=== PATIENT | female | born 1940 | race Caucasian/White ===

== ENCOUNTER 2018-04-13 11:15 | Outpatient (CLI) | payer MEDICARE, OTHER, SELFPAY ==
[2018-04-13 13:37] LABS: ALT 21 U/L (12-78); AST 17 U/L (15-37); Albumin 3.6 g/dL (3.4-5.0); Alkaline Phosphatase 92 U/L (46-116); Anion Gap 8.3 mmol/L (3-11); BUN 22 mg/dL (7-18); Bilirubin, Total 0.5 mg/dL (0.2-1.0); CO2 28.7 mmol/L (21.0-32.0); CREATININE 1.39 mg/dL (0.55-1.02); Calcium 10.2 mg/dL (8.5-10.1); Chloride 106 mmol/L (98-107); Estimated GFR 36.67 (mL/min/1.73m2); Glucose 84 mg/dL (70-100); Potassium 4.7 mmol/L (3.5-5.1); Sodium 143 mmol/L (136-145); TSH (W/Ref FT4) 2.11 uIU/mL (0.358-3.74)
== END 2018-04-13 11:35 ==
PROVIDERS: PCP Internal Medicine; Visit Provider Internal Medicine
DX: F03.90 Unspecified dementia, unspecified severity, without behavioral disturbance, psychotic disturbance, mood disturbance, and anxiety (principal); R00.1 Bradycardia, unspecified; E03.9 Hypothyroidism, unspecified
CPT/HCPCS: 36415; 80053; 84443

== ENCOUNTER 2018-04-18 01:28 | Outpatient (CLI) | payer MEDICARE, OTHER, SELFPAY ==
--- NOTE | 2018-04-24 16:42 | HOLTER_ITS ---
DATE OF READING: April 24, 2018 48-hour study. Baseline rhythm sinus. Occasional single PAC. Three burst SVT, longest 7-beat duration, fastest 138 bpm. No atrial fibrill ation. Rare single PVC, one couplet, no VT. 126 pauses, longest 3.91 seconds 1513 hours on day #1 of monitor. On day #2 of monitor at least 4 pauses of approximately 3 seconds are recorded around 3860-2750 hours . Pauses are asymptomatic. Average 1-minute heart rate 45 bpm, range 33-127 bpm.
== END 2018-04-18 01:48 ==
PROVIDERS: PCP Internal Medicine; Visit Provider Internal Medicine
DX: R00.1 Bradycardia, unspecified (principal); I49.1 Atrial premature depolarization; I47.1 Supraventricular tachycardia
CPT/HCPCS: 93225

== ENCOUNTER 2018-04-21 16:34 | Outpatient (CLI) | payer MEDICARE, OTHER, SELFPAY | END 2018-04-21 16:54 | PROVIDERS: PCP Internal Medicine; Visit Provider Internal Medicine | DX: R00.1 Bradycardia, unspecified (principal); I49.1 Atrial premature depolarization; I47.1 Supraventricular tachycardia | CPT/HCPCS: 93226 ==

== ENCOUNTER 2018-04-24 10:50 | Outpatient (CLI) | payer MEDICARE, OTHER, SELFPAY | END 2018-04-24 11:10 | PROVIDERS: PCP Internal Medicine; Visit Provider Internal Medicine Interventional Cardiology | DX: R00.1 Bradycardia, unspecified (principal); I49.1 Atrial premature depolarization; I47.1 Supraventricular tachycardia | CPT/HCPCS: 93227 ==

== ENCOUNTER 2018-07-17 10:48 | Outpatient (CLI) | payer MEDICARE, OTHER, SELFPAY ==
[2018-07-17 15:01] LABS: ALT 22 U/L (12-78); AST 22 U/L (15-37); Albumin 3.8 g/dL (3.4-5.0); Alkaline Phosphatase 97 U/L (46-116); Anion Gap 8.3 mmol/L (3-11); BUN 21 mg/dL (7-18); Bilirubin, Total 0.6 mg/dL (0.2-1.0); CO2 29.7 mmol/L (21.0-32.0); Calcium 10.3 mg/dL (8.5-10.1); Chloride 104 mmol/L (98-107); Estimated GFR 31.17 (mL/min/1.73m2); Glucose 90 mg/dL (70-100); Potassium 4.7 mmol/L (3.5-5.1); Sodium 142 mmol/L (136-145); TSH (W/Ref FT4) 3.28 uIU/mL (0.358-3.74); Total Protein 7.6 g/dL (6.4-8.2)
== END 2018-07-17 11:08 ==
PROVIDERS: PCP Internal Medicine; Visit Provider Internal Medicine
DX: N18.9 Chronic kidney disease, unspecified (principal); E03.9 Hypothyroidism, unspecified
CPT/HCPCS: 36415; 80053; 84443

== ENCOUNTER 2018-08-21 01:44 | Outpatient (CLI) | payer MEDICARE, OTHER, SELFPAY ==
[2018-08-21 11:28] LABS: Vitamin D 25 Total 48.5 ng/ml (30-100)
[2018-08-22 14:44] LABS: Albumin 55.6 % (55.8-66.1); Total Protein 6.7 g/dl (6.3-8.2)
[2018-08-24 15:35] LABS: PTH-Related Peptide 0.5 pmol/L (<2.0)
== END 2018-08-21 02:04 ==
PROVIDERS: PCP Internal Medicine; Visit Provider Internal Medicine
DX: E83.52 Hypercalcemia (principal)
CPT/HCPCS: 36415; 82306; 82397; 84165

== ENCOUNTER 2019-02-01 02:18 | Outpatient (CLI) | payer MEDICARE, OTHER, SELFPAY ==
[2019-02-01 12:58] LABS: Abs Immature Grans 0.02 k/cumm (0.0-0.09); Absolute Basophil Count 0.04 k/cumm (0.0-0.2); Absolute Eosinophil Count 0.16 k/cumm (0.0-0.7); Absolute Lymphocyte Count 2.14 k/cumm (1.2-3.4); Absolute Monocyte Count 0.57 k/cumm (0.11-0.7); Absolute Neutrophil Count 3.93 k/cumm (1.2-6.7); Basophils % 0.6; Eosinophils % 2.3; HCT 40.2 % (36.0-46.0); Immature Grans % 0.3; Lymphocytes % 31.2; Mean Corp. HGB Concentration 32.3 g/dL (32.0-36.0); Mean Corpuscular Hemoglobin 30.4 pg (27.0-33.0); Mean Corpuscular Volume 94.1 fL (80-95); Monocytes % 8.3; Neutrophils % 57.3; Platelet Count 265 x1000/uL (130-400); RBC 4.27 m/cumm (4.00-5.20); RBC Distribution Width 13.7 % (11.7-14.6); White Blood Cell Count 6.86 k/cumm (4.4-10.8)
[2019-02-01 13:16] LABS: ALT 20 U/L (12-78); AST 18 U/L (15-37); Albumin 2.1 g/dL (3.4-5.0); Alkaline Phosphatase 81 U/L (46-116); Anion Gap 7.7 mmol/L (3-11); BUN 23 mg/dL (7-18); Bilirubin, Total 0.5 mg/dL (0.2-1.0); CO2 29.3 mmol/L (21.0-32.0); CREATININE 1.48 mg/dL (0.55-1.02); Calcium 9.9 mg/dL (8.5-10.1); Chloride 107 mmol/L (98-107); Estimated GFR 34.02 (mL/min/1.73m2); Glucose 90 mg/dL (70-100); Potassium 4.3 mmol/L (3.5-5.1); Sodium 144 mmol/L (136-145); Total Protein 6.7 g/dL (6.4-8.2)
== END 2019-02-01 02:38 ==
PROVIDERS: PCP Internal Medicine; Visit Provider Internal Medicine
DX: R50.9 Fever, unspecified (principal); I10 Essential (primary) hypertension
CPT/HCPCS: 36415; 80053; 84443; 85025

== ENCOUNTER 2019-10-27 14:32 | Inpatient (IN) | payer MEDICARE, OTHER, SELFPAY ==
[2019-10-27 14:34] VITALS: BP 182/64; PULSE 64; RESP 18; TEMP 37; O2SAT 99
--- NOTE | 2019-10-27 14:45 | DI.CT_ITS ---
EXAM: CT HEAD CERVICAL SPINE WO CLINICAL HISTORY: s/p fall, r/o acute injury. TECHNIQUE: Imaging Protocol: Axial computed tomography images with coronal and sagittal reformatted images were created and reviewed COMPARISON: No exams were available for comparison FINDINGS: Head CT Ventricles and Extra axial spaces: Normal in size and morphology for the patient's age. Hemorrhage: None. Cerebral parenchyma: Mild white matter changes likely reflecting small vessel disease.. Midline shift: None. Brainstem/Cerebellum: Normal. Calvarium: Normal. Visualized Paranasal sinuses/Mastoids: Clear. IMPRESSION: No acute abnormality. FINDINGS: Cervical Spine CT BONES: Vertebral body heights are maintained. Alignment is normal. There is no evidence of acute frac ture. SOFT TISSUES: No paraspinal hematoma. The airway appears intact. Degenerative disc changes and facet degenerative changes are seen . IMPRESSION: Degenerative changes, no acute abnormality. RADIATION DOSE DELIVERED: DATA REPOSITORY: All CT scans at this facility are submitted to the National Radiology Data Registry (NRDR) Dose Index Registry (DIR) with the [employer] (A[employer]). RADIATION OPTIMIZATION: All CT scans at this facility use at least one of these dose optimization te chniques: automated exposure control; mA and/or kV adjustment per patient size (includes targeted exa ms where dose is matched to clinical indication); or iterative reconstruction.
--- NOTE | 2019-10-27 14:45 | DI.RAD_ITS ---
EXAM: XR HIP LT COMPLETE AP PELVIS INDICATION: s/p fall, r/o acute fracture. COMPARISON: No exams were available for comparison TECHNIQUE: 2D digital imaging was performed. FINDINGS: There is a subcapital fracture of the left femur. There is mild displacement and some impaction. T here is bilateral acetabular spurring. No additional fractures are seen. IMPRESSION: Subcapital fracture of the left femur. DATA REPOSITORY: RADIATION DOSE DELIVERED:
--- NOTE | 2019-10-27 14:45 | DI.RAD_ITS ---
EXAM: XR CHEST 1V IN DI DEPT CLINICAL HISTORY: s/p fall, r/o acute fracture TECHNIQUE: 2D digital imaging was performed. COMPARISON: LEFT RIBS TO INCLUDE CXR from 05/24/2011 FINDINGS: Heart size is within normal limits. The lungs appear clear. No pneumothorax or grossly displaced ri b fracture is seen. No effusion or infiltrate is identified. IMPRESSION: Negative portable chest.
--- NOTE | 2019-10-27 14:51 | W.ED.GENAD ---
Discharge Plan Disposition Patient Disposition: [facility] INPATIENT Condition: Stable Discharge Details Chief Complaint: Orthopedic Clinical Impression: Fracture of left hip Admit Date/Time: 10/27/19 15:33 Admit Provider: David Carlos Attending Provider: David Carlos Primary Care Provider: Kerri Villanueva ED Provider: Maggy Smith Discharge Data Discharge Date/Time-TO BE ENTERED AT DEPARTURE: 10/27/19 16:36 Medical Decision Making 1440 --79-year-old female with a history of dementia presents after mechanical fall at home with concern for left hip fracture. witnessed fall and he is unclear of head injury but denies any LOC or vomiting. She is pleasantly demented at her baseline but does not recall fall. Left lower extremity externally rotated and shortened. No open fracture noted. Neurovascular intact. Lungs clear abdomen soft and nontender. No midline spinal tenderness no obvious evidence of head injury. No other extremity injury noted. She has an small excoriation to her left shoulder which states is due to picking. There is a mild area of surrounding cellulitis which likely could respond to topical antibiotics. Patient referred for CT head and cervical spine, chest x-ray and left hip and pelvis x-rays. Imaging reviewed and notes a left femoral neck fracture. CT head and cervical spine and chest x-ray negative. Case discussed with Dr. Murray -will likely plan for OR tomorrow. Case discussed with hospitalist who accepts patient for admission. Screening labs including COVID-19 ordered. Anesthesia paged for regional nerve block of hip for pain. Medical Records Medical records reviewed: Yes I reviewed the patient's medical records. Imaging Data Radiologic Study: Radiologist's impression: XR Left Hip with Pelvis when Performed Exam date and time: 10/27/2019 3:15 PM Age: 79 years old Clinical indication: Other: S/P fall, R/O acute fracture TECHNIQUE: Imaging protocol: XR Left hip with pelvis when performed. Views: 2 or 3 views. COMPARISON: No relevant prior studies available. FINDINGS: Bones/joints: There is an acute impacted fracture of the left femoral neck. Displacement measures up to 5 mm. No other fracture is identified. The left hip joint is normally aligned. Right hip joint alignment cannot be confirmed without a lateral view. The femoral head articular contours are maintained. The bones appear osteopenic. There is mild osteophyte formation about the bilateral hip and sacroiliac joints. Soft tissues: The soft tissues appear grossly unremarkable. IMPRESSION: 1. Acute left femoral neck fracture. 2. Degenerative changes as described. XR Chest, 2 Views Exam date and time: 10/27/2019 3:24 PM Age: 79 years old Clinical indication: Other: S/P fall, R/O acute fracture; Additional info: Exam was changed to a single ap view not pa/lat TECHNIQUE: Imaging protocol: XR of the chest Views: 2 views. COMPARISON: No relevant prior studies available. FINDINGS: Lungs: Unremarkable. No consolidation. Pleural space: Unremarkable. No pleural effusion. No pneumothorax. Heart/Mediastinum: Unremarkable. No cardiomegaly. Bones/joints: Degenerative changes involve the spine. No acute fracture of the visualized skeleton is identified. IMPRESSION: No evidence for acute pulmonary disease. CT Head Without Contrast Exam date and time: 10/27/2019 2:51 PM Age: 79 years old Clinical indication: Other: S/P fall, R/O acute injury TECHNIQUE: Imaging protocol: Computed tomography of the head without contrast. Radiation optimization: All CT scans at this facility use at least one of these dose optimization techniques: automated exposure control; mA and/or kV adjustment per patient size (includes targeted exams where dose is matched to clinical indication); or iterative reconstruction. COMPARISON: No relevant prior studies available. FINDINGS: Brain: Cerebral volume loss noted. Scattered areas of decreased attenuation in the deep periventricular white matter consistent with small vessel ischemic change. No evidence for acute intracranial hemorrhage. Ventricles: Normal. No ventriculomegaly. Bones/joints: Unremarkable. No acute fracture. Sinuses: Mild mucoperiosteal thickening ethmoid air cells. Mastoid air cells: Trace partial opacification left inferior mastoid air cells. Orbits: Status post cataract surgery bilaterally. Soft tissues: Unremarkable. IMPRESSION: Senescent changes noted. No acute intracranial abnormality. CT Cervical Spine Without Contrast Exam date and time: 10/27/2019 2:51 PM Age: 79 years old Clinical indication: Other: S/P fall, R/O acute injury TECHNIQUE: Imaging protocol: Computed tomography images of the cervical spine without contrast. Radiation optimization: All CT scans at this facility use at least one of these dose optimization techniques: automated exposure control; mA and/or kV adjustment per patient size (includes targeted exams where dose is matched to clinical indication); or iterative reconstruction. COMPARISON: No relevant prior studies available. FINDINGS: Vertebrae: Vertebral body height is well preserved. Spinal alignment is anatomic. There is mild, diffuse spondylosis without stenosis. C2-C3: No disc herniation. No spinal canal stenosis. No neural foraminal narrowing. C3-C4: No disc herniation. No spinal canal stenosis. No neural foraminal narrowing. C4-C5: No disc herniation. No spinal canal stenosis. No neural foraminal narrowing. C5-C6: No disc herniation. No spinal canal stenosis. No neural foraminal narrowing. C6-C7: No disc herniation. No spinal canal stenosis. No neural foraminal narrowing. C7-T1: No disc herniation. No spinal canal stenosis. No neural foraminal narrowing. Soft tissues: Unremarkable. Dental: There is some beam hardening artifact from dental work. Vasculature: Calcified plaque in the carotid arteries, left worse than right. Lungs: Lung apices are normal. IMPRESSION: Mild spondylosis without stenosis. No evidence for fracture. Lab Data Lab results reviewed: Yes I reviewed the patient's lab results. Labs: Laboratory Tests Range/Units 10/27/19 10/27/19 10/27/19 15:30 15:30 15:30 WBC (4.4-10.8) k/cumm 7.88 RBC (4.00-5.20) m/cumm 4.40 Hgb (12.0-15.5) g/dL 13.4 Hct (36.0-46.0) % 40.9 MCV (80-95) fL 93.0 MCH (27.0-33.0) pg 30.5 MCHC (32.0-36.0) g/dL 32.8 RDW (11.7-14.6) % 13.3 Plt Count (130-400) x1000/uL 280 MPV (8.0-11.0) fL 11.4 H Immature Gran % % 0.5 Neutrophils % 71.7 Lymphocytes % 19.3 Monocytes % 7.1 Eosinophils % 1.0 Basophils % 0.4 Absolute Neutrophils (1.2-6.7) k/cumm 5.65 Absolute Lymphocytes (1.2-3.4) k/cumm 1.52 Absolute Monocytes (0.11-0.7) k/cumm 0.56 Absolute Eosinophils (0.0-0.7) k/cumm 0.08 Absolute Basophils (0.0-0.2) k/cumm 0.03 Sodium (136-145) mmol/L 141 Potassium (3.5-5.1) mmol/L 3.8 Chloride (98-107) mmol/L 105 Carbon Dioxide (21.0-32.0) mmol/L 28.1 Anion Gap (3-11) mmol/L 7.9 BUN (7-18) mg/dL 20 H Creatinine (0.55-1.02) mg/dL 1.44 H Estimated GFR/1.73 m2 (mL/min/1.73m2) 35.02 Glucose (74-106) mg/dL 115 H Calcium (8.5-10.1) mg/dL 9.7 Magnesium (1.8-2.4) mg/dL 2.1 Total Bilirubin (0.2-1.0) mg/dL 0.5 AST (15-37) U/L 19 ALT (14-59) U/L 21 Alkaline Phosphatase (46-116) U/L 92 Troponin I (<0.06) ng/Ml < 0.05 Total Protein (6.4-8.2) g/dL 7.2 Albumin (3.4-5.0) g/dL 3.4 Patient ABO/Rh A Positive Antibody Screen Negative ECG Data Attestation: I personally reviewed and interpreted this ECG (s) as follows: Interpretation: Rate of 55, sinus, less than [address] depression noted in aVL and aVF and V2. [address] depression noted in V3 which has been seen in previous EKG. No acute ST elevation. UT 170. QTc 415. QRS 98. HPI General Mode of arrival: EMS. Date/Time Provider Initiated Documentation: 10/27/19 14:35. Limitations to Documentation: altered mental status. Information obtained by: patient, family and EMS. HPI Narrative: Patient is an 79-year-old female with a history of dementia, hypertension, depression who presents for concern for hip fracture status post fall. states he witnessed fall and that patient turned and lost her footing and fell onto her left hip onto a carpeted floor. He is unsure of any head injury but denies any LOC or vomiting. Patient was unable to give any history regarding the fall but does complain of left hip pain. He did not give any medication for pain. Patient received fentanyl and Zofran in route per EMS. Related Data Home Medications Medication Instructions Recorded Confirmed cholecalciferol (vitamin D3) 1,000 units PO DAILY 12/18/12 10/27/19 Zyrtec 10 mg PO DAILY 05/28/15 10/27/19 aspirin [Aspirin Low-Strength] 81 mg PO DAILY tab-cap 05/28/15 10/27/19 cyanocobalamin (vitamin B-12) 5,000 mcg PO DAILY #100 tab-cap 04/25/17 10/27/19 polyethylene glycol 3350 17 gram 17 gm PO DAILY PRN #224 gm 04/13/18 10/27/19 oral powder packet levothyroxine 25 mcg tablet 25 mcg PO DAILY #90 cap 04/09/19 10/27/19 donepezil 10 mg tablet 10 mg PO DAILY #90 tab-cap 06/11/19 10/27/19 lisinopril 10 mg tablet 10 mg PO DAILY #90 tab-cap 07/06/19 10/27/19 Previous Rx's Medication Instructions Recorded cyanocobalamin (vitamin B-12) 5,000 mcg PO DAILY #100 tab-cap 04/25/17 levothyroxine 25 mcg tablet 25 mcg PO DAILY #90 cap 04/09/19 donepezil 10 mg tablet 10 mg PO DAILY #90 tab-cap 06/11/19 lisinopril 10 mg tablet 10 mg PO DAILY #90 tab-cap 07/06/19 Allergies Allergy/AdvReac Type Severity Reaction Status Date / Time acidic foods AdvReac Mild Uncoded 10/27/19 14:41 General Stated Complaint: Orthopedic ANNIKA: 2 Review of Systems All systems reviewed & are unremarkable except as noted in HPI and below Constitutional Constitutional: Reports as per HPI, Denies chills and Denies fever(s) Eyes Eyes: Denies blurry vision ENT Ears, Nose, Mouth, and Throat: Denies dizziness, Denies sore throat and Denies throat swelling Cardiovascular Cardiovascular: Denies chest pain and Denies dyspnea Respiratory Respiratory: Denies cough and Denies dyspnea Gastrointestinal Gastrointestinal: Denies abdominal pain, Denies diarrhea and Denies vomiting Genitourinary Genitourinary: Denies hematuria and Denies dysuria Musculoskeletal Musculoskeletal: Denies back pain, Denies numbness and Reports other (L hip pain) Integumentary/Breasts Skin/Breast: Denies lesions and Denies rash Neurologic Neurologic: Denies dizziness, Denies localized weakness and Denies numbness Allergic/Immunologic Allergic/Immunologic: Denies throat swelling [facility] Medical History (Updated 10/27/19 @ 16:19 by Danelle Frye NP) Dementia (Acute) Depressive disorder (Inactive 01/03/13) Hypertension (Inactive) Asked Braxton to check her blood pressure several times a week and write it down. He is going to bring in a record somewhere in 2 or 3 weeks to see what she is doing at home. Her pressure has been much higher in the past and right now will accept this pressure. Myocardial infarction (Inactive 05/26/95) Takusubu Syndrome Surgical History Appendectomy Cholecystectomy Extraction of cataract B/L Hysterectomy, Laproscopic WITH BSO Ligation of fallopian tube Family History Mother Personal history of malignant neoplasm Father No problems noted. Social History Smoking/Tobacco Use Status: Former Tobacco Use Alcohol Intake: current Alcohol Intake frequency: a few times a month Drug use: Never What type of physical activity do you participate in: walking Duration: 60-90 minutes/day Do you feel safe in your relationship?: Yes Exam Const General: cooperative and no acute distress Orientation: alert and awake HENMT Head: normal to inspection Ears: hearing grossly normal bilaterally, external ears normal and TM's normal bilaterally General nose exam: external nose normal Face and sinus: normal facial exam Mouth: oral mucosae normal Teeth and gingiva: dentition normal Throat: posterior oropharynx normal Eyes General: appearance normal, both eyes and all related structures Eyelids: eyelids normal Pupils: PERRL EOM: EOM intact bilaterally Neck Neck: normal visual inspection Lymphatic: no lymphadenopathy noted Chest Chest: normal inspection of the chest, normal palpation of entire chest wall and no tenderness Resp Effort & Inspection: normal respiratory effort and able to speak in complete sentences Auscultation: clear to auscultation bilaterally Cardio Rate: regular rate Rhythm: regular rhythm GI Inspection: normal to inspection Palpation: soft, not firm, no guarding, no hepatosplenomegaly, no masses and nontender Auscultation: normal bowel sounds Back/Spine/Pelvis Back: no CVA tenderness Cervical Spine: No cervical spinal tenderness Thoracic/Lumbar Spine: No thoracic spinal tenderness and No lumbar spinal tenderness Skin Other: 3 x 3 mm excoriation noted to left anterior shoulder with mild surrounding erythema. Neuro General: patient alert and patient awake Cognition: normal cognition Speech: speech normal Gait: normal gait Motor: muscle tone normal throughout Sensory Exam: no sensory deficits noted Extrem Other: Left lower extremity shortened and externally rotated. No obvious evidence of trauma to left hip unable to move at left hip due to pain. Full range of motion bilateral upper extremities and right lower extremity. Psych Appearance: grossly normal Mental Status: mental status grossly normal Speech and Movement: speech and movement normal Affect: normal affect Thought Process: normal Course Vital Signs Vital signs: Vital Signs Temperature 98.6 F 10/27/19 14:34 Pulse 64 10/27/19 14:34 Respiratory Rate 18 10/27/19 14:34 Blood Pressure 182/64 H 10/27/19 14:34 Pulse Oximetry 99 10/27/19 14:34 Temperature 98.6 F 10/27/19 14:34 Temperature Source Temporal Artery Scan 10/27/19 14:34 Pulse 64 10/27/19 14:34 Respiratory Rate 18 10/27/19 14:34 Respiratory Effort Non-Labored 10/27/19 14:40 Blood Pressure 182/64 H 10/27/19 14:34 Blood Pressure Position Supine 10/27/19 14:34 Pulse Oximetry 99 10/27/19 14:34 Oxygen Delivery Method Room Air 10/27/19 14:34 Oxygen Flow Rate 0 10/27/19 14:34 Pain Level 0 10/27/19 14:44
--- NOTE | 2019-10-27 15:54 | DI.VRAD_ITS ---
PROCEDURE INFORMATION: Exam: CT Head Without Contrast Exam date and time: 10/27/2019 2:51 PM Age: 79 years old Clinical indication: Other: S/P fall, R/O acute injury TECHNIQUE: Imaging protocol: Computed tomography of the head without contrast. Radiation optimization: All CT scans at this facility use at least one of these dose optimization techniques: automated exposure control; mA and/or kV adjustment per patient size (includes targeted exams where dose is matched to clinical indication); or iterative reconstruction. COMPARISON: No relevant prior studies available. FINDINGS: Brain: Cerebral volume loss noted. Scattered areas of decreased attenuation in the deep periventricular white matter consistent with small vessel ischemic change. No evidence for acute intracranial hemorrhage. Ventricles: Normal. No ventriculomegaly. Bones/joints: Unremarkable. No acute fracture. Sinuses: Mild mucoperiosteal thickening ethmoid air cells. Mastoid air cells: Trace partial opacification left inferior mastoid air cells. Orbits: Status post cataract surgery bilaterally. Soft tissues: Unremarkable. IMPRESSION: Senescent changes noted. No acute intracranial abnormality. PROCEDURE INFORMATION: Exam: CT Cervical Spine Without Contrast Exam date and time: 10/27/2019 2:51 PM Age: 79 years old Clinical indication: Other: S/P fall, R/O acute injury TECHNIQUE: Imaging protocol: Computed tomography images of the cervical spine without contrast. Radiation optimization: All CT scans at this facility use at least one of these dose optimization techniques: automated exposure control; mA and/or kV adjustment per patient size (includes targeted exams where dose is matched to clinical indication); or iterative reconstruction. COMPARISON: No relevant prior studies available. FINDINGS: Vertebrae: Vertebral body height is well preserved. Spinal alignment is anatomic. There is mild, diffuse spondylosis without stenosis. C2-C3: No disc herniation. No spinal canal stenosis. No neural foraminal narrowing. C3-C4: No disc herniation. No spinal canal stenosis. No neural foraminal narrowing. C4-C5: No disc herniation. No spinal canal stenosis. No neural foraminal narrowing. C5-C6: No disc herniation. No spinal canal stenosis. No neural foraminal narrowing. C6-C7: No disc herniation. No spinal canal stenosis. No neural foraminal narrowing. C7-T1: No disc herniation. No spinal canal stenosis. No neural foraminal narrowing. Soft tissues: Unremarkable. Dental: There is some beam hardening artifact from dental work. Vasculature: Calcified plaque in the carotid arteries, left worse than right. Lungs: Lung apices are normal. IMPRESSION: Mild spondylosis without stenosis. No evidence for fracture. COMMENTS: Preliminary interpretation is based on receipt of 1647 image(s). A final report will be issued subsequently. Dictated and Authenticated by: Nicolle Simmons MD. Ordering:TASHI Winter MD
--- NOTE | 2019-10-27 16:00 | DI.VRAD_ITS ---
PROCEDURE INFORMATION: Exam: XR Chest, 2 Views Exam date and time: 10/27/2019 3:24 PM Age: 79 years old Clinical indication: Other: S/P fall, R/O acute fracture; Additional info: Exam was changed to a single ap view not pa/lat TECHNIQUE: Imaging protocol: XR of the chest Views: 2 views. COMPARISON: No relevant prior studies available. FINDINGS: Lungs: Unremarkable. No consolidation. Pleural space: Unremarkable. No pleural effusion. No pneumothorax. Heart/Mediastinum: Unremarkable. No cardiomegaly. Bones/joints: Degenerative changes involve the spine. No acute fracture of the visualized skeleton is identified. IMPRESSION: No evidence for acute pulmonary disease. Dictated and Authenticated by: Will Martins MD. Ordering:TASHI Winter MD
[2019-10-27 16:02] LABS: Abs Immature Grans 0.04 k/cumm (0.0-0.09); Absolute Basophil Count 0.03 k/cumm (0.0-0.2); Absolute Eosinophil Count 0.08 k/cumm (0.0-0.7); Absolute Lymphocyte Count 1.52 k/cumm (1.2-3.4); Absolute Monocyte Count 0.56 k/cumm (0.11-0.7); Absolute Neutrophil Count 5.65 k/cumm (1.2-6.7); Basophils % 0.4; HCT 40.9 % (36.0-46.0); HGB 13.4 g/dL (12.0-15.5); Immature Grans % 0.5 %; Lymphocytes % 19.3; Mean Corp. HGB Concentration 32.8 g/dL (32.0-36.0); Mean Corpuscular Hemoglobin 30.5 pg (27.0-33.0); Mean Platelet Volume 11.4 fL (8.0-11.0); Monocytes % 7.1; Neutrophils % 71.7; Platelet Count 280 x1000/uL (130-400); RBC Distribution Width 13.3 % (11.7-14.6); White Blood Cell Count 7.88 k/cumm (4.4-10.8)
--- NOTE | 2019-10-27 16:02 | DI.VRAD_ITS ---
PROCEDURE INFORMATION: Exam: XR Left Hip with Pelvis when Performed Exam date and time: 10/27/2019 3:15 PM Age: 79 years old Clinical indication: Other: S/P fall, R/O acute fracture TECHNIQUE: Imaging protocol: XR Left hip with pelvis when performed. Views: 2 or 3 views. COMPARISON: No relevant prior studies available. FINDINGS: Bones/joints: There is an acute impacted fracture of the left femoral neck. Displacement measures up to 5 mm. No other fracture is identified. The left hip joint is normally aligned. Right hip joint alignment cannot be confirmed without a lateral view. The femoral head articular contours are maintained. The bones appear osteopenic. There is mild osteophyte formation about the bilateral hip and sacroiliac joints. Soft tissues: The soft tissues appear grossly unremarkable. IMPRESSION: 1. Acute left femoral neck fracture. 2. Degenerative changes as described. Dictated and Authenticated by: Will Martins MD. Ordering:TASHI Winter MD
--- NOTE | 2019-10-27 16:04 | W.PM.HP.N ---
Date of service: 10/27/19 Time of Service: 16:04 Assessment and Plan Assessment and plan (1) Fracture of left hip: Start date: 10/27/19 Start time: 16:19 Status: Acute Assessment and plan: Sustained a left femoral neck fracture after misstepping and falling on left hip. Witnessed by , she did not hit her head. Dr. Murray consulted he will take her to surgery tomorrow. According to AHA/ACC guidelines she is a low to intermediate risk for surgery. Benefits of surgery outweigh risk for any type of ischemic event. Risk for cardiac arrest is 0.21%, per duncan scale. (2) Fall: Start date: 10/27/19 Start time: 16:26 Status: Acute Assessment and plan: See above, resulted in hip fracture. (3) Essential hypertension: Start date: 10/27/19 Start time: 16:26 Status: Acute Assessment and plan: Will monitor and continue with low dose lisinopril (4) Hypothyroid: Start date: 10/27/19 Start time: 16:27 Status: Chronic Assessment and plan: Continue levothyroxine. (5) Dementia: Status: Acute History of Present Illness History of Present Illness Chief Complaint: Left femoral neck fracture Narrative: 79 y.o. female with PMH of dementia, HTN, hypothyroid, diptheria presenting to ED after sustaining a fall. Mrs. Zhu was turning and misstepped falling onto the Carpet and falling on her left hip causing severe pain. witnessed fall, states she did not hit her head. She states her fall was due to her weight, she was fixated on her weight several times mentioning wt loss or gain in the past. This fixation likely due to dementia, otherwise AAOx2. present for interview. Imaging in the ED representing left femoral neck fracture. CBC normal, other labs pending, EKG pending for preop. She is c/o pain on interview; per ED physician she will be having a block. ED spoke with Dr. Murray who agreed to take her to surgery in am. For this reason she has been asked to be admitted to hospitalist group and will be placed on m/s. She denies CP, N/V/D. Review of Systems All systems reviewed & are unremarkable except as noted in HPI and below PFSH Medical History Dementia (Inactive) Depressive disorder (Inactive 01/03/13) Hypertension (Inactive) Asked Braxton to check her blood pressure several times a week and write it down. He is going to bring in a record somewhere in 2 or 3 weeks to see what she is doing at home. Her pressure has been much higher in the past and right now will accept this pressure. Myocardial infarction (Inactive 05/26/95) Takusubu Syndrome Surgical History Appendectomy Cholecystectomy Extraction of cataract B/L Hysterectomy, Laproscopic WITH BSO Ligation of fallopian tube Family History Mother Personal history of malignant neoplasm Father No problems noted. Social History Smoking/Tobacco Use Status: Former Tobacco Use Alcohol Intake: current Alcohol Intake frequency: a few times a month Drug use: Never What type of physical activity do you participate in: walking Duration: 60-90 minutes/day Do you feel safe in your relationship?: Yes Meds Home Medications and Allergies Home Medications Medication Instructions Recorded Confirmed Type cholecalciferol (vitamin D3) 1,000 units PO DAILY 12/18/12 10/27/19 History Zyrtec 10 mg PO DAILY 05/28/15 10/27/19 History aspirin [Aspirin Low-Strength] 81 mg PO DAILY tab-cap 05/28/15 10/27/19 History cyanocobalamin (vitamin B-12) 5,000 mcg PO DAILY #100 tab-cap 04/25/17 10/27/19 Rx polyethylene glycol 3350 17 gram 17 gm PO DAILY PRN #224 gm 04/13/18 10/27/19 History oral powder packet levothyroxine 25 mcg tablet 25 mcg PO DAILY #90 cap 04/09/19 10/27/19 Rx donepezil 10 mg tablet 10 mg PO DAILY #90 tab-cap 06/11/19 10/27/19 Rx lisinopril 10 mg tablet 10 mg PO DAILY #90 tab-cap 07/06/19 10/27/19 Rx Allergies Allergy/AdvReac Type Severity Reaction Status Date / Time acidic foods AdvReac Mild Uncoded 10/27/19 14:41 Exam Const General: cooperative, healthy appearing and no acute distress Nutritional Appearance: obese Orientation: alert, awake, not oriented x3, oriented to person and oriented to time HENAK Head: normal to inspection, normocephalic and atraumatic Ears: hearing grossly normal bilaterally Mouth: moist mucous membranes Eyes Sclera: sclerae normal Cornea: corneas normal Pupils: PERRL Neck Neck: normal visual inspection and full ROM Lymphatic: no lymphadenopathy noted Chest Chest: normal inspection of the chest Resp Effort & Inspection: normal respiratory effort Auscultation: clear to auscultation bilaterally Other: I did not assess posterior lungs due to hip fracture and severe pain. However clear with good areation bilaterally to anterior lungs Cardio Jugular venous pressure: no JVD Rate: regular rate Rhythm: regular rhythm Heart Sounds: S1 normal, S2 normal and no murmurs GI Inspection: normal to inspection Palpation: soft and no hepatosplenomegaly Auscultation: normal bowel sounds General: deferred Back/Spine/Pelvis Thoracic/Lumbar Spine: other (unable to assess due to fx) Skin General skin exam: no rashes or lesions noted Lesions: no lesions Rashes: no rashes Wounds: no wounds Neuro General: patient alert, patient awake, oriented Patient Orientation: Person and Time and does not move all extremities Extrem General: normal to inspection and no clubbing, cyanosis or edema Left lower extremity: hip/thigh (external rotation) Details: abnormal to inspection and deformity; abnormal ROM Psych Appearance: well kempt Mental Status: mental status grossly normal Speech and Movement: speech and movement normal Results Labs Result diagrams: 10/27/19 15:30 10/27/19 15:30 Last Vital Signs Temp 37 C 10/27/19 14:34 Pulse 64 10/27/19 14:34 Resp 18 10/27/19 14:34 BP 182/64 H 10/27/19 14:34 Pulse Ox 99 10/27/19 14:34 COVID-19 Screening Traveled to [place] from one of the affected countries or regions?: NO Recent travel in the [place] within the last 14 days?: No Recent out of the country travel within the last 14 days?: No Exposure or possible exposure to illness during travel?: No Had IN PERSON contact w/suspected or confirmed C-19 person: No Have you had the following symptoms in the past few days?: No Symptoms noted since travel?: No Symptoms
[2019-10-27 16:15] LABS: ALT 21 U/L (14-59); AST 19 U/L (15-37); Albumin 3.4 g/dL (3.4-5.0); Alkaline Phosphatase 92 U/L (46-116); Anion Gap 7.9 mmol/L (3-11); BUN 20 mg/dL (7-18); Bilirubin, Total 0.5 mg/dL (0.2-1.0); CO2 28.1 mmol/L (21.0-32.0); CREATININE 1.44 mg/dL (0.55-1.02); Calcium 9.7 mg/dL (8.5-10.1); Chloride 105 mmol/L (98-107); Estimated GFR 35.02 (mL/min/1.73m2); Glucose 115 mg/dL (74-106); Magnesium 2.1 mg/dL (1.8-2.4); Potassium 3.8 mmol/L (3.5-5.1); Sodium 141 mmol/L (136-145); Total Protein 7.2 g/dL (6.4-8.2)
[2019-10-27 16:17] LABS: Troponin I < 0.05 ng/Ml (<0.06)
[2019-10-27 16:20] VITALS: BP 163/69; PULSE 59; RESP 16; TEMP 36.7; O2SAT 96
[2019-10-27 16:26] VITALS: BP 163/69; PULSE 59; RESP 16; TEMP 36.8; O2SAT 96
[2019-10-27 16:55] VITALS: BP 165/73; PULSE 52; RESP 18; TEMP 36.6; O2SAT 99
[2019-10-27] MEDS: Normal Saline 1,000 ML 50 ML IV (17:02)
[2019-10-27 17:10] VITALS: BP 165/73; PULSE 52; RESP 18; TEMP 36.6; O2SAT 99
[2019-10-28] VITALS (11 sets, daily range): BP systolic 88–176; BP diastolic 45–82; PULSE 46–66; RESP 16–19; TEMP 36–37.4; O2SAT 95–98
[2019-10-28] MEDS: Levothyroxine 25 MCG TAB PO (06:19)
--- NOTE | 2019-10-28 06:19 | OCONE_ITS ---
Date of service: 10/28/19 Time of Service: 07:04 History of Present Illness History of Present Illness Chief Complaint: Left hip pain Narrative: Alecia is an 79-year-old with dementia who had a witnessed fall. She tripped within her home landing awkwardly onto her left side. She had immediate pain and deformity and is unable to bear weight. She was brought to the emergency department and diagnosed with a significantly displaced left femoral neck fracture. The history was primarily obtained from her , Braxton. He reports that there was no pre-fall loss of consciousness or reported dizziness or chest pain or palpitations. She did not hit her head did not lose consciousness. She currently does not remember the fall details but does know she has pain in her left hip, especially if she tries to move about the bed. She denies numbness or tingling. Consults Consult date: 10/27/19 Requesting physician: Danelle Frye Consult Reason Left hip fracture Assessment and Plan Assessment and plan (1) Displaced fracture of left femoral neck: Status: Acute Assessment and plan: Alecia is an 79-year-old who has a displaced left femoral neck fracture. This was a mechanical fall. I discussed treatment options with her , Braxton. Given the displaced nature of this fracture I would recommend fixation. Due to the location of the fracture the best choice would be a hemiarthroplasty. A total hip arthroplasty is not unreasonable as w ell. However, given her dementia and age, hemiarthroplasty is probably the best option. Her bone quality is actually pretty good given her age. However, given her dementia, femoral neck fracture, and age and recent literature, I will perform a cemented hip hemiarthroplasty. This will be done through an anterior approach without any precautions after surgery. She will be able to mobilize immediately. She should be able to discharge to home once she has been able to mobilize sufficiently in the hospital. I discussed some of the technical details of the case with Braxton. I also reviewed the risk to include bleeding, infection, pain, stiffness, leg length inequality's, dislocation, need for repeat procedures, weakness, blood clot, cardiopulmonary demise. Despite these risk, he elects to proceed. Review of Systems All systems reviewed & are unremarkable except as noted in HPI and below PFSH Medical History Dementia (Acute) Depressive disorder (Inactive 01/03/13) Hypertension (Inactive) Asked Braxton to check her blood pressure several times a week and write it down. He is going to bring in a record somewhere in 2 or 3 weeks to see what she is doing at home. Her pressure has been much higher in the past and right now will accept this pressure. Myocardial infarction (Inactive 05/26/95) Takusubu Syndrome Surgical History Appendectomy Cholecystectomy Extraction of cataract B/L Hysterectomy, Laproscopic WITH BSO Ligation of fallopian tube Family History Mother Personal history of malignant neoplasm Father No problems noted. Social History Smoking/Tobacco Use Status: Former Tobacco Use Alcohol Intake: current Alcohol Intake frequency: a few times a month Drug use: Never What type of physical activity do you participate in: walking Duration: 60-90 minutes/day Do you feel safe in your relationship?: Yes Exam Narrative Exam Narrative: Resting in the hospital bed. Alert and oriented to person. Head is normocephalic and atraumatic. Obviously demented, but pleasant and cooperative. Left leg is notably shortened and externally rotated. No noted areas of skin breakdown or laceration or abrasion. No pain to palpation of the knee, tib-fib, foot, or ankle. Reports sensation is intact light touch over the deep and supe rficial peroneal nerve and tibial nerve as well as the femoral nerve distribution. Palpable DP and PT pulses. Results Last Vital Signs Temp 36.8 C 10/28/19 03:25 Pulse 58 L 10/28/19 03:25 Resp 16 10/28/19 03:25 BP 147/70 H 10/28/19 03:25 Pulse Ox 96 10/28/19 03:25 Labs Result diagrams: 10/28/19 06:50 10/28/19 06:50 Labs: Laboratory Results - last 24 hr 10/27/19 10/27/19 10/27/19 15:30 15:30 15:30 WBC 7.88 RBC 4.40 Hgb 13.4 Hct 40.9 MCV 93.0 MCH 30.5 MCHC 32.8 RDW 13.3 Plt Count 280 MPV 11.4 H Immature Gran % 0.5 Neutrophils % 71.7 Lymphocytes % 19.3 Monocytes % 7.1 Eosinophils % 1.0 Basophils % 0.4 Absolute Neutrophils 5.65 Absolute Lymphocytes 1.52 Absolute Monocytes 0.56 Absolute Eosinophils 0.08 Absolute Basophils 0.03 Sodium 141 Potassium 3.8 Chloride 105 Carbon Dioxide 28.1 Anion Gap 7.9 BUN 20 H Creatinine 1.44 H Estimated GFR/1.73 m2 35.02 Glucose 115 H Calcium 9.7 Magnesium 2.1 Total Bilirubin 0.5 AST 19 ALT 21 Alkaline Phosphatase 92 Troponin I < 0.05 Total Protein 7.2 Albumin 3.4 Patient ABO/Rh A Positive Antibody Screen Negative Imaging Imaging Studies: X-ray of the pelvis and left hip demonstrates a displaced femoral neck fracture, Garden 4. There is notable shortening of the left limb. There may be some early arthritic change seen within the central and inferior aspect of the acetabulum but no overwhelming disease with any acetabular cystic change, flattening, or deformity.
--- NOTE | 2019-10-28 06:45 | DI.RAD_ITS ---
EXAM: XR HIP LT IN OR CLINICAL HISTORY: LEFT HIP FRACTURE. TECHNIQUE: 2D and realtime digital imaging was performed. COMPARISON: No exams were available for comparison FINDINGS: Fluoroscopy was provided in the OR. A hard copy image shows placement of a left hip prosthesis. Th e alignment appears satisfactory. FLUORO TIME: 30.1 seconds RADIATION DOSE DELIVERED:
[2019-10-28 07:07] LABS: Abs Immature Grans 0.04 k/cumm (0.0-0.09); Absolute Basophil Count 0.01 k/cumm (0.0-0.2); Absolute Lymphocyte Count 1.59 k/cumm (1.2-3.4); Absolute Monocyte Count 1.09 k/cumm (0.11-0.7); Absolute Neutrophil Count 10.91 k/cumm (1.2-6.7); Basophils % 0.1; Eosinophils % 0.7; HCT 39.7 % (36.0-46.0); HGB 13.2 g/dL (12.0-15.5); Immature Grans % 0.3 %; Lymphocytes % 11.6; Mean Corp. HGB Concentration 33.2 g/dL (32.0-36.0); Mean Corpuscular Hemoglobin 30.4 pg (27.0-33.0); Mean Corpuscular Volume 91.5 fL (80-95); Monocytes % 7.9; Neutrophils % 79.4; Platelet Count 267 x1000/uL (130-400); RBC 4.34 m/cumm (4.00-5.20); White Blood Cell Count 13.74 k/cumm (4.4-10.8)
[2019-10-28 07:19] LABS: Anion Gap 8.9 mmol/L (3-11); BUN 19 mg/dL (7-18); CO2 26.1 mmol/L (21.0-32.0); CREATININE 1.35 mg/dL (0.55-1.02); Calcium 9.6 mg/dL (8.5-10.1); Chloride 103 mmol/L (98-107); Estimated GFR 37.73 (mL/min/1.73m2); Glucose 112 mg/dL (74-106); Magnesium 1.9 mg/dL (1.8-2.4); Potassium 3.8 mmol/L (3.5-5.1); Sodium 138 mmol/L (136-145)
[2019-10-28 07:20] LABS: COVID-19 RT-PCR UVMMC Result Negative (Negative)
--- NOTE | 2019-10-28 07:30 | NUR.NOTE ---
Nursing Note: Pt transferred to PACU for hip repair
[2019-10-28] MEDS: Lactated Ringers 1,000 ML 75 ML IV ×2 (07:54→17:26)
[2019-10-28] MEDS: ceFAZolin 2 GM/50 ML BAG IVPB (08:17)
--- NOTE | 2019-10-28 08:54 | PDOC.CMIN ---
- If Service Date Differs Date of service: 10/28/19 Time of Service: 08:54 Care Management Initial Assess REASON FOR HOSPITALIZATION:: Fracture of left hip PAST MEDICAL HISTORY/PAST SURGICAL HISTORY:: Medical History . Dementia (Inactive). Depressive disorder (Inactive 01/03/13). Hypertension (Inactive). Asked Braxton to check her blood pressure several times a week and write it down. He is going to bring in a record somewhere in 2 or 3 weeks to see what she is doing at home. Her pressure has been much higher in the past and right now will accept this pressure. Myocardial infarction (Inactive 05/26/95). Takusubu Syndrome. Surgical History . Appendectomy. Cholecystectomy. Extraction of cataract. B/L. Hysterectomy, Laproscopic. WITH BSO. Ligation of fallopian tube PREVIOUS FUNCTIONAL STATUS/SOCIAL/FAMILY SUPPORTS:: Alecia lives with her Braxton in a mobile home in [place], [place] They have only been for 4 years and Alecia was diagnosed with dementia a few months after they , and t has been getting progressively worse. Alecia has a son Av who lives locally and is very supportive and helpful. She curently receive no community services. CURRENT FUNCTIONAL STATUS:: Alecia went to the operating room this morning for repair of her hip fracture. She has been sleeping all day so CM was unable to meet with her. called Alecia's Braxton and he shared information about Alecia and their life together. he has been caring for her since the onset of her dementia. Alecia's son Av is also helpful and is helping Braxton build a ramp so Alecia can safely return home using a walker. ADVANCE DIRECTIVES:: none on file Has patient been provided with information about the portal?: No Did the patient sign up for the portal?: No CODE STATUS:: Full Code INSURANCE COVERAGE / FINANCIAL ISSUES:: Medicare. [employer] PRIMARY CARE PHYSICIAN:: Shawanda Villanueva POTENTIAL DISCHARGE NEEDS:: Follow up with PCP and discharge plan of care PATIENT/FAMILY EDUCATION NEEDS:: Discharge plan. limitations, follow up plan, Ask me Three. TRANSPORTATION:: via private vehicle with when ready PLAN:: Alecia will likely return home when medically cleared by providers. She may need home health nursing and/or PT, depending on her post-operative course. She will follow up with her surgeon and discharge plan of care. HALLE will continue to support Alecia and communicate daily with Braxton regarding Alecia's progress.
[2019-10-28] MEDS: Ketorolac 30 MG/ML VIAL (08:57)
[2019-10-28] MEDS: Bupivacaine 0.25% Pres-Free 30 ML VIAL (08:58)
[2019-10-28] MEDS: Tranexamic Acid 1,000 MG/10 ML VIAL 1000 MG (09:48)
--- NOTE | 2019-10-28 10:01 | W.PM.OP ---
Date of service: 10/28/19 Time of Service: 10:01 Operative Note Operative Note DATE OF PROCEDURE: 10/28/19 PRE-OP DIAGNOSIS: Left Femoral Neck Fracture POST-OP DIAGNOSIS: same PROCEDURE: Left Hip Anterior Cemented Hemiarthroplasty SURGEON: Jovon Murray RECOIL SPRING WINDER: Marivel Seymour ANESTHESIA: spinal ESTIMATED BLOOD LOSS: 200 PATHOLOGY: none sent TOURNIQUET TIME: 0 COMPLICATIONS: None Patient was transported to: floor Patient's condition: stable Implants: 1. Depuy Benzie Basic Cemented Stem, Size 3 2. Depuy Unipolar Modular Head, 46mm with +0 collar 3. Cement restrictor and centralizer Indications: I have seen Alecia in the hospital as a consult for a left femoral neck fracture. Given the displaced nature of this fracture I recommended operative fixation. Given her older age and dementia, I recommended a hemiarthroplasty performed from an anterior approach. I discussed the technical details of a hemiarthroplasty with her , Braxton. I explained the risks of the procedure to include, but not limited to, bleeding, infection, pain, stiffness, fracture, damage to nerves and vessels, damage to muscles and tendons, loosening, instability, leg length inequality, need for repeat procedure, blood clot and cardiopulmonary demise. Despite these risks, Alecia and her Braxton, MELECIO, elected to proceed. Findings: There was a significantly displaced fracture of the femoral neck. No significant wear of the acetabulum was identified. Procedure Description: Alecia was greeted in the preoperative holding area where the correct side was identified and marked. The consent was previously obtained from her , Braxton, over the phone. She was taken back to the operating room. A spinal anesthestic was then administered. The patient was placed into the supine position on the operating room table. The patient was then positioned onto the ARCH table. Both feet were wrapped with Webrill cotton wrap along with Coban. The feet were placed in specialized boots for the ARCH table, well seated within the boot and secured. SCDs were applied. The patient was then slid down onto a peroneal post and the nonoperative leg was secured in a leg fortune attached to the table. The operative side was placed into the ARCH table attachment and bed height and positioning was secured. A preoperative AP pelvis was obtained to serve as a reference for determining leg lengths. Prophylactic antibiotics in the form of cefazolin were administered. 1g of Tranxemic Acid was given intravenously within 30 minutes of incision. The left leg was then prepped with Chloraprep and draped in a standard fashion. A second prep was performed prior to placing the final shower-curtain type drape with Iodine impregnated skin protection. A timeout to confirm correct identity, side and site, procedure, allergies, anesthesia, and medical concerns was performed. An obliquely oriented incision was made starting lateral to the ASIS and running distal over the Tensor Fascia Marian (TFL) muscle belly toward the fibular head, approximately 10cm. The skin and soft tissue was dissected sharply, through Romina?s fascia, and to the fascia of the TFL. With the fascia and superior border of the IT band identified, the fascia was incised with a new knife just above any perforators from the IT band. The TFL muscle belly was bluntly dissected away from the fascia and moved laterally. The fat between TFL and rectus was identified to ensure the dissection was not within the TFL. Blunt dissection created space between abductors and the capsule and retractor was placed over the lateral femoral neck. The fibers of the rectus femoris tendon were identified and these were freed from the anterior capsule. A second cobra retractor was placed around the medial femoral neck. The TFL was further retracted laterally to show the deep fascia. Careful dissection through this layer identified three main crossing vessels of the lateral femoral circumflex. These were cauterized in multiple locations and then cut without any noticeable bleeding. The TFL was further released bluntly from the deep fascia to expose anterior hip capsule and fat The Rhett orthopaedic retractor was then placed beneath the TFL and against sartorius and medial soft tissues to protect and retract the soft tissues. A T-capsulotomy was then performed starting at the superior lateral acetabulum and moving distally to the intertrochanteric ridge making sure not to violate the labrum. These capsular flaps were tagged with a No. 1 Ethibond and elevated from within. The capsular flaps were released to the shoulder of the lateral neck and to the lesser trochanter to give excellent visualization of the proximal femur. A neck osteotomy was performed using an oscillating saw based on preoperative templates of the uninjured side. This cut started in the shoulder and of the lateral neck and exited medially. The saw was at all times directed medially to avoid injury to the greater trochanter. 6cm of traction was applied to the leg and the osteotomy opened. This piece was then removed. The femoral head was then seen in the acetabulum. The femoral head was removed with a corkscrew, making sure to protect the TFL on its exit. This was measured on the back table to determing the starting reamer size. There is no significant chondromalacia of the acetabulum. There were no loose fragments within the cup. Traction was released from the femur. The leg was rotated to 120 degrees. Any remaining medial capsule was released until the lesser trochanter was easily palpable. A retractor was then placed medially. The lateral capsule was further released into the shoulder to allow access to the greater trochanter. A Jimenez retractor was placed over the greater trochanter which allowed the trochanter to flip in front of the capsule for excellent exposure. The leg was brought down into maximal extension and 20 degrees of adduction while ensuring there was no impingement on the acetabulum. Any remnant capsule within the trochanter was released. Piriformis and obturator externis were identified and protected. There was excellent access to the proximal femur. The lateral neck remnant was removed with a rongeur. A blunt canal probe was used to identify the canal and trajectory for later broaching. A box osteotome initiated the broach course. A small curved rasp and a curved curette were used to work laterally. Broaching then began with a size 1 Benzie broach. This was inserted manually around the trochanter and into the canal before mallet blows. The broach was seated to a few millimeters below the cut level based on the neck cut and the preoperative template. Sequential broaching was continued until a snug fit was obtained. A trial unipolar neck was inserted along with a +0 46 mm unipolar trial head. The leg was brought out of extension and adduction and then reduced with traction and internal rotation. The leg was stable anteriorly in a position of 30 degrees of extension and 90 degrees of external rotation. Fluoroscopy was used to ensure there was no fracture and the stem was seated well. Leg lengths were checked with an AP pelvis and pelvic reference points. Once content with the desired offset and leg lengths, the leg was brought back into extension, external rotation and adduction. The periosteum and surrounding tissue was injected with remaining portion of the edith-articular cocktail of 0.25% bupivacaine, 30 mg ketorolac, and 20 cc of Exparel. A cement restrictor was then placed down into the femur. The proximal femur was irrigated as well as the deep tissues. On the back table 2 batches of medium viscosity cement were prepared. The femoral canal was irrigated and dried. Using the cement gun the cement was inserted into the femoral canal with manual pressure at the opening pressurizing the cement. I then placed the Depuy Benzie cemented stem, size 3, was then manually inserted into the proximal femur making sure to control rotation. It was held in position trying to minimize varus and malrotation. This pressure was held for 18 minutes, and until the cement was inspected to be solid. Any excess cement was removed. The selected Depuy unipolar head, 46 mm, with +0 collar was then placed onto the clean and dry trunnion and secured with impaction onto the tapered fit. The leg was brought back out of extension and adduction and reduced with traction and internal rotation. Stability was confirmed with no shuck at 90 degrees of external rotation and 30 degrees of extension. No impingement through range of motion arc. Final x-ray images were obtained with fluoroscopy to confirm adequate positioning and no intraoperative fracture. The deep tissues were thoroughly irrigated with Irrisept chlorhexadine solution. The second dose of TXA 1g was administered intravenously. The capsule was then reapproximated with the previously placed Ethibond sutures. The TFL fascia was finally closed with a No. 2 Stratafix, barbed suture. Deep tissues were then reapproximated with 0 Vicryl and a running 2-0 Vicryl. The skin was closed with a running 4-0 Monocryl in a subcuticular fashion. This was reinforced with skin glue. A Mepilex silver dressing was applied. At the end of the case, all counts were correct. Alecia was transferred to the hospital bed without difficulty and suffering no apparent complication. She has a good prognosis. Physical therapy will start today and without restrictions, weight-bearing as tolerated. Aspirin 81mg BID will be used for DVT prophylaxis.
[2019-10-28] MEDS: Cholecalciferol (Vitamin D3) 1,000 UNIT TAB 1000 UNITS PO (10:45)
[2019-10-28] MEDS: Cetirizine 10 MG TAB PO (10:45)
[2019-10-28] MEDS: Donepezil 5 MG TAB 10 MG PO (10:45)
[2019-10-28] MEDS: Lisinopril 10 MG TAB PO (10:45)
--- NOTE | 2019-10-28 11:08 | W.PM.PROGNOT ---
Date of Service Date of service: 10/28/19 Time of Service: 11:08 Assessment and Plan Assessment and plan (1) Fracture of left hip: Start date: 10/28/19 Start time: 11:12 Status: Deleted Assessment and plan: Day of surgery, Left Hip Anterior Cemented Hemiarthroplasty done by Dr. Murray, patient just returned. She is not having any pain. Recommendations are ASA 81 mg BID for DVT prophylaxsis, Physical therapy will start today without restrictions, weight-bearing as tolerated Analgesics for pain, tylenol lee. with oxycodone po q6H prn breakthrough pain (2) Fall: Start date: 10/28/19 Start time: 11:16 Status: Acute Assessment and plan: See above, resulted in hip fracture. Surgery today (3) Essential hypertension: Start date: 10/28/19 Start time: 11:16 Status: Acute Assessment and plan: Will monitor and continue with low dose lisinopril (4) Hypothyroid: Start date: 10/28/19 Start time: 11:16 Status: Chronic Assessment and plan: Continue levothyroxine. (5) Dementia: Start date: 10/28/19 Start time: 11:16 Status: Acute Assessment and plan: Not behavioral at this time. Overnight reports of being combative and pulling out IV. At this time she is oriented x 1, pleasant. not agitated or combative. Continue to monitor she is currently on donepezil. She is at risk for worsening confusion due to her being out of her environment and medication r/t surgery. monitor for change in behavior. (6) Discharge planning issues: Start date: 10/28/19 Start time: 11:19 Status: Acute Assessment and plan: She may require a short rehab admission. PT to evaluate. Her takes care of her at home. Will wait for dispo based on PT eval. Above case discussed with Dr. Carlos who is in agreement. Subjective Subjective Patient reports: no new complaints Interval history since last seen: Mrs. Alston is sitting up in bed upon evaluation. She returns from the OR AAO to person only. she states no pain at this time. She appears comfortable. She denies CP, SOB, N/V/D Exam Const General: cooperative, healthy appearing and no acute distress Nutritional Appearance: obese Orientation: alert, awake, not oriented x3, oriented to person and oriented to time [facility] Head: normal to inspection, normocephalic and atraumatic Ears: hearing grossly normal bilaterally Mouth: moist mucous membranes Eyes Sclera: sclerae normal Cornea: corneas normal Pupils: PERRL Neck Neck: normal visual inspection and full ROM Lymphatic: no lymphadenopathy noted Chest Chest: normal inspection of the chest Resp Effort & Inspection: normal respiratory effort Auscultation: clear to auscultation bilaterally Cardio Jugular venous pressure: no JVD Rate: regular rate Rhythm: regular rhythm Heart Sounds: S1 normal, S2 normal and no murmurs GI Inspection: normal to inspection Palpation: soft and no hepatosplenomegaly Auscultation: normal bowel sounds General: deferred Back/Spine/Pelvis Thoracic/Lumbar Spine: other (unable to assess due to fx) Skin Lesions: no lesions Rashes: no rashes Wounds: wounds noted (surgical insicion to left thigh with bandage c/d/i) Neuro General: patient alert, patient awake, oriented Patient Orientation: Person and Time and does not move all extremities Extrem General: normal to inspection and no clubbing, cyanosis or edema Right lower extremity: normal to inspection Left lower extremity: normal to inspection and hip/thigh (surgical incision to left LE. ) Details: normal to inspection Other: PPPx 2, CMST + Psych Appearance: well kempt Mental Status: mental status grossly normal Speech and Movement: speech and movement normal Objective Objective Clinical Data: Abnormal lab results 10/27/19 10/27/19 10/28/19 Range/Units 15:30 15:30 06:50 WBC (4.4-10.8) k/cumm MPV 11.4 H (8.0-11.0) fL Absolute Neutrophils (1.2-6.7) k/cumm Absolute Monocytes (0.11-0.7) k/cumm BUN 20 H 19 H (7-18) mg/dL Creatinine 1.44 H 1.35 H (0.55-1.02) mg/dL Glucose 115 H 112 H (74-106) mg/dL 10/28/19 Range/Units 06:50 WBC 13.74 H D (4.4-10.8) k/cumm MPV (8.0-11.0) fL Absolute Neutrophils 10.91 H (1.2-6.7) k/cumm Absolute Monocytes 1.09 H (0.11-0.7) k/cumm BUN (7-18) mg/dL Creatinine (0.55-1.02) mg/dL Glucose (74-106) mg/dL Vital Signs Temperature 36.3 C L 10/28/19 11:01 Temperature Source Tympanic 10/28/19 11:01 Pulse 46 L 10/28/19 11:01 Pulse Rhythm Regular 10/27/19 20:00 Respiratory Rate 18 10/28/19 11:01 Respiratory Effort Non-Labored 10/27/19 20:00 Respiratory Depth Normal 10/27/19 20:00 Respiratory Pattern Normal 10/27/19 20:00 Blood Pressure 144/76 H 10/28/19 11:01 Blood Pressure Position Supine 10/27/19 14:34 Pulse Oximetry 97 10/28/19 11:01 Oxygen Delivery Method Room Air 10/28/19 11:01 Oxygen Flow Rate 0 10/28/19 11:01 Pain Level 0 10/28/19 11:01 Comment 10/28/19 00:29 Intake & Output 10/27/19 10/27/19 10/28/19 11:59 23:59 11:59 Intake Total 360 / 360 Output Total 850 / 850 Balance -490 / -490 Weight 63.2 kg Intake: IV 360 / 360 Output: Urine 650 / 650 Estimated Blood Loss 200 / 200 Other: Urine Color Yellow Pale Urine Appearance Clear Clear Laboratory Results WBC 13.74 k/cumm (4.4-10.8) H D 10/28/19 06:50 RBC 4.34 m/cumm (4.00-5.20) 10/28/19 06:50 Hgb 13.2 g/dL (12.0-15.5) 10/28/19 06:50 Hct 39.7 % (36.0-46.0) 10/28/19 06:50 MCV 91.5 fL (80-95) 10/28/19 06:50 MCH 30.4 pg (27.0-33.0) 10/28/19 06:50 MCHC 33.2 g/dL (32.0-36.0) 10/28/19 06:50 RDW 13.0 % (11.7-14.6) 10/28/19 06:50 Plt Count 267 x1000/uL (130-400) 10/28/19 06:50 MPV 11.0 fL (8.0-11.0) 10/28/19 06:50 Immature Gran % 0.3 % 10/28/19 06:50 Neutrophils % 79.4 10/28/19 06:50 Lymphocytes % 11.6 10/28/19 06:50 Monocytes % 7.9 10/28/19 06:50 Eosinophils % 0.7 10/28/19 06:50 Basophils % 0.1 10/28/19 06:50 Absolute Neutrophils 10.91 k/cumm (1.2-6.7) H 10/28/19 06:50 Absolute Lymphocytes 1.59 k/cumm (1.2-3.4) 10/28/19 06:50 Absolute Monocytes 1.09 k/cumm (0.11-0.7) H 10/28/19 06:50 Absolute Eosinophils 0.10 k/cumm (0.0-0.7) 10/28/19 06:50 Absolute Basophils 0.01 k/cumm (0.0-0.2) 10/28/19 06:50 Sodium 138 mmol/L (136-145) 10/28/19 06:50 Potassium 3.8 mmol/L (3.5-5.1) 10/28/19 06:50 Chloride 103 mmol/L (98-107) 10/28/19 06:50 Carbon Dioxide 26.1 mmol/L (21.0-32.0) 10/28/19 06:50 Anion Gap 8.9 mmol/L (3-11) 10/28/19 06:50 BUN 19 mg/dL (7-18) H 10/28/19 06:50 Creatinine 1.35 mg/dL (0.55-1.02) H 10/28/19 06:50 Estimated GFR/1.73 m2 37.73 (mL/min/1.73m2) 10/28/19 06:50 Glucose 112 mg/dL (74-106) H 10/28/19 06:50 Calcium 9.6 mg/dL (8.5-10.1) 10/28/19 06:50 Magnesium 1.9 mg/dL (1.8-2.4) 10/28/19 06:50 Total Bilirubin 0.5 mg/dL (0.2-1.0) 10/27/19 15:30 AST 19 U/L (15-37) 10/27/19 15:30 ALT 21 U/L (14-59) 10/27/19 15:30 Alkaline Phosphatase 92 U/L (46-116) 10/27/19 15:30 Troponin I < 0.05 ng/Ml (<0.06) 10/27/19 15:30 Total Protein 7.2 g/dL (6.4-8.2) 10/27/19 15:30 Albumin 3.4 g/dL (3.4-5.0) 10/27/19 15:30 COVID-19 PCR Negative (Negative) 10/27/19 16:12 Nasopharyn COVID-19 PCR Not Applicable 10/27/19 16:12 Ref Test Perform Site [facility] hospital lab 10/27/19 16:12 Patient ABO/Rh A Positive 10/27/19 15:30 Antibody Screen Negative 10/27/19 15:30
--- NOTE | 2019-10-28 11:49 | PHA.REVIEW ---
Pharmacy Admission Review - Admission Clinical Review (Last Reviewed 10/28/19 @ 06:28 by Jovon Murray MD) Discharge planning issues (Acute) Displaced fracture of left femoral neck (Acute) Fall (Acute) Dementia (Acute) Essential hypertension (Acute 05/31/13) acidic foods Adverse Reaction (Mild, Uncoded 10/27/19 14:41) Height 5 ft 1.81 in Weight 63.2 kg - Comments Comments/Follow Ups: Patient with Left Hip fracture from fall at home. Went to OR this morning (10/27). Patient has Dementia - Renal Dosing Renal Dosing: BUN 19 mg/dL (7-18) H 10/28/19 06:50 Creatinine 1.35 mg/dL (0.55-1.02) H 10/28/19 06:50 Medications needing adjustments: Reviewed (Est CrCl~ 25 mL/min (Lisinopril at Home dose)) - Anticoagulation Anticoagulation: Hgb 13.2 g/dL (12.0-15.5) 10/28/19 06:50 Hct 39.7 % (36.0-46.0) 10/28/19 06:50 Plt Count 267 x1000/uL (130-400) 10/28/19 06:50 Creatinine 1.35 mg/dL (0.55-1.02) H 10/28/19 06:50 Medications: Aspirin - Opiate Usage Evaluate Pain Scale/Pains Meds: Reviewed (Oxycodone & Morphine prn) Scheduled Bowel Reg ordered if on Opiates?: Yes - Relevant Labs Sodium 138 mmol/L (136-145) 10/28/19 06:50 Potassium 3.8 mmol/L (3.5-5.1) 10/28/19 06:50 Chloride 103 mmol/L (98-107) 10/28/19 06:50 Magnesium 1.9 mg/dL (1.8-2.4) 10/28/19 06:50 - DM Control DM Control: Glucose 112 mg/dL (74-106) H 10/28/19 06:50 Insulin Dosing: N/A (LISINOPRIL-ok) - Heart Failure/AR Heart Failure/AR: Troponin I < 0.05 ng/Ml (<0.06) 10/27/19 15:30 - BP Control BP Control: Blood Pressure 144/76 Blood Pressure 122/64 Blood Pressure 176/65 Blood Pressure 147/70 Blood Pressure 164/82 - Qtc Review If Elevated: Reviewed (QTc-431 no issues) - IV to PO Switch IV Medications: Reviewed (Cefaolin x 3 doses then dc) - Home Meds Home Med List reviewed: Reviewed (Awaiting [place]va Vitamin B-12 (5,000mcg) Rapid tablets)
[2019-10-28] MEDS: Acetaminophen 325 MG TAB PO ×2 (12:35→17:34)
--- NOTE | 2019-10-28 13:54 | PT.INIE ---
Date of service: 10/28/19 Time of Service: 13:54 PT Notes Visit Reasons: LEFT HIP FX Physical Therapy Inpatient Initial Evaluation Date: 10/28/2019 Referring Doctor: Jovon Murray MD PT Orders: PT CONSULT: Status post Ortho surgery. Status post anterior left hemiarthroplasty. No precautions. Precautions: High fall risk. Standard precautions. Weight WBAT on left LE. Patient Profile/Admitting Diagnosis: Patient is an 79-year-old female who was brought to the ED via EMS due to a mechanical fall at home resulting to a displaced femoral neck fracture on the left. She is status post left anterior cemented hemiarthroplasty on postoperative day 0. PMHX: Medical History Dementia (Inactive) Depressive disorder (Inactive 01/03/13) Hypertension (Inactive) Asked Braxton to check her blood pressure several times a week and write it down. He is going to bring in a record somewhere in 2 or 3 weeks to see what she is doing at home. Her pressure has been much higher in the past and right now will accept this pressure. Myocardial infarction (Inactive 05/26/95) Takusubu Syndrome Surgical History Appendectomy Cholecystectomy Extraction of cataract B/L Hysterectomy, Laproscopic WITH BSO Ligation of fallopian tube Social History/Home Situation: Patient is an unreliable historian reached out to care management for more information regarding home situation. Equipment Owned/DME: Patient is an unreliable historian reached out to care management for more information regarding home situation. Subjective: Patient did not want to get out of bed as she states that she is too cold despite having several layers of blanket on her. She stated she does not feel like moving right now and in that she was very much comfortable in bed. Patient finally agreed to sitting up on the edge with this PT providing a second gown to cover her back. She said that she can move all right without any help. She voiced no pain on the left hip or any part of her body. She denied being dizzy throughout session. Objective: General Observation: Patient resting in bed. IV in the right UE. Mepilex Ag over hip surgical incision. Patterson catheter in place. Anti-thromboembolic pumps to bilateral legs. TEDS to both legs. Mental Status: Patient is oriented to person only. She is unable to tell time, the place where she is at, and is unable to fully follow instructions. Pain: None reported Vital Signs: Blood pressure 127/73 mmHg, pulse 49 bpm, oxygen saturation 98% on room air. ROM: Right Upper Extremity: Shoulder Flexion WFL. Shoulder abduction WFL. Elbow flexion WFL. Wrist flexion WFL. Opening and closing of hand WFL. Left Upper Extremity: Shoulder Flexion WFL. Shoulder abduction WFL. Elbow flexion WFL. Wrist flexion WFL. Opening and closing of hand WFL. Right Lower Extremity: Hip flexion WFL. Hip abduction WFL. Knee flexion WFL. Ankle dorsiflexion WFL. Ankle plantarflexion WFL. Left Lower Extremity: Hip flexion unable to lift beyond 90 degrees while seated on the edge of bed. Hip abduction WFL. Knee flexion WFL. Knee extension WFL. Ankle dorsiflexion WFL. Ankle plantarflexion WFL. Strength: Right Upper Extremity: Shoulder flexors 5/5. Shoulder abductors 5/5. Elbow flexors 5/5. Elbow extensors 5/5. [employer] Analyst strong. Left Upper Extremity: Shoulder flexors 5/5. Shoulder abductors 5/5. Elbow flexors 5/5. Elbow extensors 5/5. [employer] Analyst strong. Right Lower Extremity: Hip flexors 4/5. Hip abductors 4/5. Knee flexors 4/5. Knee extensors 4/5. Ankle dorsiflexors 4/5. Ankle plantarflexors 4/5. Left Lower Extremity:Hip flexors 3-/5. Hip abductors 3-/5. Knee flexors 4-/5. Knee extensors 3/5. Ankle dorsiflexors 4-/5. Ankle plantarflexors 4-/5. Bed Mobility/Transfers: Rolling moderate assist with maximal verbal cueing needed Supine to sit moderate assist with maximal verbal cueing needed Sit to supine moderate assist x 2 with maximal verbal cueing needed Sit to stand maximal assist of 2 with maximal verbal cueing needed. Patient had a near fall incident as she impulsively stood up while PT and ASSISTANT FOOD SERVICE DIRECTOR Arielle were getting ready to stand her up. Her left knee gave way and she went low but this PT and ASSISTANT FOOD SERVICE DIRECTOR were able to catch her to prevent further descent. With further assistance from another ASSISTANT FOOD SERVICE DIRECTOR Kristen, patient was able to be lifted and scooted back on to the bed safely. Nurse Laverne was updated about what happened when she came in a little after this incident. Stand to sit maximal assist of 2 with maximal verbal cueing needed Bed to chair unable to perform. Will asses in the next session. Chair to bed unable to perform. Will asses in the next session. Gait: Unable to perform. Will asses in the next session. Balance: Static Sitting: Good Dynamic Sitting: Good Static Standing: Unable to perform Dynamic Standing: Unable to perform Special Tests: Mobility Limitations Standardized Measure [facility] AM-PAC 6 clicks Basic Mobility Inpatient Short Form: Raw Score: 9 CMS Score: 81% deficit Informed Consent/Education: Patient instructed in purpose of PT consult and plan of care. Assessment: Impaired safety awareness. Highly impulsive. Lack of insight to functional deficits due to dementia. Need for extensive verbal cueing for sequencing and overall safety. Functional mobility decline. High fall risk. Need for assistive device for all mobility ADL performance. Patient is an 79-year-old female who was brought to the ED via EMS due to a mechanical fall at home resulting to a displaced femoral neck fracture on the left. She is status post left anterior cemented hemiarthroplasty on postoperative day 0. We will continue with mobility assessment once post anesthesia effects on the left LE is resolved and patient has better control of left LE. Patient presents with clinical signs and symptoms consistent with current/admitting diagnoses that have resulted to mobility limitations, gait instability, generalized weakness, and impairment of motor control as demonstrated by the following impairment level findings: 1. Decreased strength to B LE major muscle groups 2. Impaired sitting/standing balance 3. Impaired activity tolerance 4. Limitation of joint range of motion in left hip 5. Impaired safety awareness Impairments are contributing to the following functional limitations: 1. Dependent bed mobility skills 2. Increased dependence with transfers 3. Inability to safely ambulate without assistive device and physical assistance 4. Increase completion time for mobility ADL performance 5. Increased fall risk 6. Inability to negotiate steps alone safely Patient is assessed as a [id number] high complexity based on the following: History: 79-year-old female with impairment level findings, functional deficits, and medical history as indicated above Examination: Demonstrable impairment in strength, balance, safety awareness, activity tolerance, and range of motion with underlying impairments and functional limitations as documented above Presentation:Evolving Decision Makin high complexity Goals: Goals X1 week 1. Supine-Sit minimal assist 2. Sit-Supine minimal assist 3. Sit-Stand minimal assist with moderate verbal cues using front wheeled walker 4. Stand-Sit minimal assist with moderate verbal cues using front wheeled walker 5. Bed-Chair minimal assist with moderate verbal cues using front wheeled walker 6. Chair-Bed minimal assist with moderate verbal cues using front wheeled walker 7. minimal assist with moderate verbal cues using front wheeled walker gait on level surface with use of least restrictive device for at least 100 feet without report of pain nor dyspnea 8. Minimal assist stair negotiation while holding onto bilateral rails for at least 5 steps without report of pain nor dyspnea 9. Good static and dynamic standing balance/tolerance Plan of Care/Treatment Plan: 1-2x/day, 7 days/week x 1 week. Initiate Physical Therapy intervention for strengthening, bed mobility, transfers, gait, stairs, balance training, use of assistive device. DISCHARGE RECOMMENDATIONS: Patient will benefit from correction facility placement for continued skilled physical therapy services in order to progress mobility level, strength, and balance in preparation for a safe discharge to home with . TREATMENT CODE/TIME: 86248 x 32 minutes beginning at 13:54 PM. Thank you very much for this referral. Nancy Esparza PT, DPT, CLT [facility] [place], [place]
[2019-10-28] MEDS: ceFAZolin 1 GM/50 ML BAG IVPB ×2 (14:24→21:47)
[2019-10-28] MEDS: Normal Saline Flush 10 ML SYR IVP (14:29)
[2019-10-28] MEDS: Ketorolac 15 MG/ML VIAL IVP (16:02)
[2019-10-28 17:48] LABS: HCT 37.9 % (36.0-46.0); HGB 12.4 g/dL (12.0-15.5)
[2019-10-28] MEDS: Aspirin 81 MG CHEW PO (20:14)
[2019-10-28] MEDS: Docusate Sodium 100 MG CAP PO (20:14)
[2019-10-29] MEDS: Lactated Ringers 1,000 ML 75 ML IV (00:27)
[2019-10-29] MEDS: Acetaminophen 325 MG TAB PO ×5 (00:27→23:32)
[2019-10-29] MEDS: Ketorolac 15 MG/ML VIAL IVP ×4 (00:28→23:33)
[2019-10-29] MEDS: Levothyroxine 25 MCG TAB PO (06:11)
[2019-10-29] MEDS: ceFAZolin 1 GM/50 ML BAG IVPB ×2 (06:12→14:00)
[2019-10-29 06:47] LABS: Abs Immature Grans 0.03 k/cumm (0.0-0.09); Absolute Basophil Count 0.03 k/cumm (0.0-0.2); Absolute Lymphocyte Count 1.62 k/cumm (1.2-3.4); Absolute Monocyte Count 0.91 k/cumm (0.11-0.7); Basophils % 0.2; Eosinophils % 3.9; HCT 32.3 % (36.0-46.0); HGB 10.6 g/dL (12.0-15.5); Immature Grans % 0.2 %; Lymphocytes % 12.7; Mean Corp. HGB Concentration 32.8 g/dL (32.0-36.0); Mean Corpuscular Hemoglobin 30.3 pg (27.0-33.0); Mean Corpuscular Volume 92.3 fL (80-95); Mean Platelet Volume 11.5 fL (8.0-11.0); Monocytes % 7.1; Neutrophils % 75.9; Platelet Count 188 x1000/uL (130-400); RBC Distribution Width 13.1 % (11.7-14.6); White Blood Cell Count 12.75 k/cumm (4.4-10.8)
[2019-10-29 06:57] LABS: Anion Gap 5.6 mmol/L (3-11); BUN 20 mg/dL (7-18); CO2 26.4 mmol/L (21.0-32.0); CREATININE 1.47 mg/dL (0.55-1.02); Calcium 8.8 mg/dL (8.5-10.1); Chloride 109 mmol/L (98-107); Glucose 87 mg/dL (74-106); Potassium 3.7 mmol/L (3.5-5.1); Sodium 141 mmol/L (136-145)
[2019-10-29 07:02] LABS: Absolute Neutrophil Count 9.68 k/cumm (1.2-6.7)
[2019-10-29 07:15] VITALS: BP 121/58; PULSE 49; RESP 18; TEMP 36.7; O2SAT 97
[2019-10-29] MEDS: Polyethylene Glycol 3350 17 GM PACKET PO (08:31)
[2019-10-29] MEDS: Donepezil 5 MG TAB 10 MG PO (08:33)
[2019-10-29] MEDS: Cholecalciferol (Vitamin D3) 1,000 UNIT TAB 1000 UNITS PO (08:33)
[2019-10-29] MEDS: Normal Saline Flush 10 ML SYR IVP ×4 (08:33→23:37)
[2019-10-29] MEDS: Aspirin 81 MG CHEW PO ×2 (08:33→20:28)
[2019-10-29] MEDS: Docusate Sodium 100 MG CAP PO ×2 (08:33→20:28)
[2019-10-29] MEDS: Cetirizine 10 MG TAB PO (08:33)
--- NOTE | 2019-10-29 08:38 | W.PM.PROGNOT ---
Date of Service Date of service: 10/29/19 Time of Service: 07:38 Assessment and Plan Assessment and plan (1) Displaced fracture of left femoral neck: Status: Acute Assessment and plan: Alecia is an 79-year-old demented female who is status post hemiarthroplasty of the left hip for a displaced femoral neck fracture. She reports no pain. She does have dementia. She has not been able to go to bed yet but will do so today with physical therapy. While not perfect, I think a baby aspirin twice a day is a reasonable anticoagulation option, especially she is able to mobilize. I am concerned about an anticoagulant with her dementia and risk of fall. She has no restrictions. She may weight-bear as tolerated with an assistive device. Subjective Subjective Interval history since last seen: Alecia is POD #1 status post anterior left cemented hemiarthroplasty. She reports no pain. She did try to get up yesterday with physical therapy but was too weak to do so. She has had some slight hypotension but also with bradycardia which has responded when she awakes and sits up. Her Patterson has been outputting clear urine. She still has a small abrasion of the left shoulder which she likes to pick at. No other reported concerns from nursing staff. Exam Narrative Exam Narrative: Semireclined in the hospital bed. Evaluation of the left hip shows an intact Mepilex dressing. No surrounding ecchymosis nor erythema. No drainage or discharge on the dressing. The thigh is soft. She tolerates internal and external rotation without significant pain. I am able to minimally flex and abduct the hip. Sensation intact to light touch over the deep and superficial peroneal nerve and tibial nerve as well as the femoral nerve distribution. Intact ankle dorsiflexion, plantarflexion, EHL, FHL. Palpable DP pulse. Objective Objective Clinical Data: Abnormal lab results 10/29/19 10/29/19 Range/Units 06:04 06:04 WBC 12.75 H (4.4-10.8) k/cumm RBC 3.50 L (4.00-5.20) m/cumm Hgb 10.6 L (12.0-15.5) g/dL Hct 32.3 L (36.0-46.0) % MPV 11.5 H (8.0-11.0) fL Absolute Neutrophils 9.68 H (1.2-6.7) k/cumm Absolute Monocytes 0.91 H (0.11-0.7) k/cumm Chloride 109 H (98-107) mmol/L BUN 20 H (7-18) mg/dL Creatinine 1.47 H (0.55-1.02) mg/dL Vital Signs Temperature 36.7 C 10/29/19 07:15 Temperature Source Tympanic 10/29/19 07:15 Pulse 49 L 10/29/19 07:15 Pulse Rhythm Regular 10/28/19 20:00 Respiratory Rate 18 10/29/19 07:15 Respiratory Effort Non-Labored 10/28/19 20:00 Respiratory Depth Normal 10/28/19 20:00 Respiratory Pattern Normal 10/28/19 20:00 Blood Pressure 121/58 L 10/29/19 07:15 Blood Pressure Position Supine 10/27/19 14:34 Pulse Oximetry 97 10/29/19 07:15 Oxygen Delivery Method Room Air 10/29/19 07:15 Oxygen Flow Rate 0 10/29/19 07:15 Pain Level 0 10/29/19 07:15 Comment 10/28/19 15:23 Intake & Output 10/28/19 10/28/19 10/29/19 11:59 23:59 11:59 Intake Total 360 / 1506.25 1146.25 / 1506.25 1167.50 / 1167.50 Output Total 850 / 850 900 / 900 Balance -490 / 656.25 1146.25 / 656.25 267.50 / 267.50 Intake: IV 360 / 1026.25 666.25 / 1026.25 1167.50 / 1167.50 Oral 480 / 480 Output: Urine 650 / 650 900 / 900 Estimated Blood Loss 200 / 200 Other: Urine Color Pale [place] Urine Appearance Clear Clear Clear Laboratory Results WBC 12.75 k/cumm (4.4-10.8) H 10/29/19 06:04 RBC 3.50 m/cumm (4.00-5.20) L 10/29/19 06:04 Hgb 10.6 g/dL (12.0-15.5) L 10/29/19 06:04 Hct 32.3 % (36.0-46.0) L 10/29/19 06:04 MCV 92.3 fL (80-95) 10/29/19 06:04 MCH 30.3 pg (27.0-33.0) 10/29/19 06:04 MCHC 32.8 g/dL (32.0-36.0) 10/29/19 06:04 RDW 13.1 % (11.7-14.6) 10/29/19 06:04 Plt Count 188 x1000/uL (130-400) 10/29/19 06:04 MPV 11.5 fL (8.0-11.0) H 10/29/19 06:04 Immature Gran % 0.2 % 10/29/19 06:04 Neutrophils % 75.9 10/29/19 06:04 Lymphocytes % 12.7 10/29/19 06:04 Monocytes % 7.1 10/29/19 06:04 Eosinophils % 3.9 10/29/19 06:04 Basophils % 0.2 10/29/19 06:04 Absolute Neutrophils 9.68 k/cumm (1.2-6.7) H 10/29/19 06:04 Absolute Lymphocytes 1.62 k/cumm (1.2-3.4) 10/29/19 06:04 Absolute Monocytes 0.91 k/cumm (0.11-0.7) H 10/29/19 06:04 Absolute Eosinophils 0.50 k/cumm (0.0-0.7) 10/29/19 06:04 Absolute Basophils 0.03 k/cumm (0.0-0.2) 10/29/19 06:04 Sodium 141 mmol/L (136-145) 10/29/19 06:04 Potassium 3.7 mmol/L (3.5-5.1) 10/29/19 06:04 Chloride 109 mmol/L (98-107) H 10/29/19 06:04 Carbon Dioxide 26.4 mmol/L (21.0-32.0) 10/29/19 06:04 Anion Gap 5.6 mmol/L (3-11) 10/29/19 06:04 BUN 20 mg/dL (7-18) H 10/29/19 06:04 Creatinine 1.47 mg/dL (0.55-1.02) H 10/29/19 06:04 Estimated GFR/1.73 m2 34.20 (mL/min/1.73m2) 10/29/19 06:04 Glucose 87 mg/dL (74-106) 10/29/19 06:04 Calcium 8.8 mg/dL (8.5-10.1) 10/29/19 06:04 Magnesium 1.9 mg/dL (1.8-2.4) 10/28/19 06:50 Total Bilirubin 0.5 mg/dL (0.2-1.0) 10/27/19 15:30 AST 19 U/L (15-37) 10/27/19 15:30 ALT 21 U/L (14-59) 10/27/19 15:30 Alkaline Phosphatase 92 U/L (46-116) 10/27/19 15:30 Troponin I < 0.05 ng/Ml (<0.06) 10/27/19 15:30 Total Protein 7.2 g/dL (6.4-8.2) 10/27/19 15:30 Albumin 3.4 g/dL (3.4-5.0) 10/27/19 15:30 COVID-19 PCR Negative (Negative) 10/27/19 16:12 Nasopharyn COVID-19 PCR Not Applicable 10/27/19 16:12 Ref Test Perform Site [facility] hospital lab 10/27/19 16:12 Patient ABO/Rh A Positive 10/27/19 15:30 Antibody Screen Negative 10/27/19 15:30
--- NOTE | 2019-10-29 10:07 | PGE_ITS ---
Date of Service Date of service: 10/29/19 Time of Service: 10:08 Assessment and Plan Assessment and plan (1) Fracture of left hip: Start date: 10/29/19 Start time: 10:12 Status: Deleted Assessment and plan: POD 1. No c/o pain, OOB to chair. Ferrari intact. D/C ferrari, d/c IVF. Tolerating PO. COVID negative. ASA 81 mg BID for DVT prophylactic. PT recommended SNIF at this time, patient would benefit from going home with services especially in case of dementia. (2) Fall: Start date: 10/29/19 Start time: 10:15 Status: Acute Assessment and plan: See above, resulted in hip fracture. POD 1 Continue PT for gait stability, balance and strength (3) Essential hypertension: Start date: 10/29/19 Start time: 10:15 Status: Acute Assessment and plan: Hypotensive yesterday afternoon after surgery. Normotensive this morning, continue to monitor. (4) Hypothyroid: Start date: 10/29/19 Start time: 10:16 Status: Chronic Assessment and plan: Continue levothyroxine. (5) Dementia: Start date: 10/29/19 Start time: 10:17 Status: Acute Assessment and plan: Not behavioral at this time. Calm and pleasant. Continue to monitor. (6) Discharge planning issues: Start date: 10/29/19 Start time: 10:17 Status: Acute Assessment and plan: She may require a short rehab admission, PT recommends, however, Her takes care of her at home and would like her to return home with services. Will see how she does with PT. Above case discussed with Dr. Carlos who is in agreement. Subjective Subjective Patient reports: no new complaints Interval history since last seen: Sitting up in chair. Confused, pleasant. Drsg to LLE c/d/i, no signs of pain. Exam Narrative Exam Narrative: Pleasant elderly female, confused. Sitting up in chair. EOMI, PERRLA No goitor or lyphedema Normal chest, no labor, RRR jsohua heart rate, no murmur or gallop LSC, diminished in bases Abd soft nontender, bsx4 Ferrari intact LLE with drsg, c/d/i. PPPX2 CMST+ no edema. Objective Objective Clinical Data: Abnormal lab results 10/29/19 10/29/19 Range/Units 06:04 06:04 WBC 12.75 H (4.4-10.8) k/cumm RBC 3.50 L (4.00-5.20) m/cumm Hgb 10.6 L (12.0-15.5) g/dL Hct 32.3 L (36.0-46.0) % MPV 11.5 H (8.0-11.0) fL Absolute Neutrophils 9.68 H (1.2-6.7) k/cumm Absolute Monocytes 0.91 H (0.11-0.7) k/cumm Chloride 109 H (98-107) mmol/L BUN 20 H (7-18) mg/dL Creatinine 1.47 H (0.55-1.02) mg/dL Vital Signs Temperature 36.7 C 10/29/19 07:15 Temperature Source Tympanic 10/29/19 07:15 Pulse 49 L 10/29/19 07:15 Pulse Rhythm Regular 10/28/19 20:00 Respiratory Rate 18 10/29/19 07:15 Respiratory Effort Non-Labored 10/28/19 20:00 Respiratory Depth Normal 10/28/19 20:00 Respiratory Pattern Normal 10/28/19 20:00 Blood Pressure 121/58 L 10/29/19 07:15 Blood Pressure Position Supine 10/27/19 14:34 Pulse Oximetry 97 10/29/19 07:15 Oxygen Delivery Method Room Air 10/29/19 07:15 Oxygen Flow Rate 0 10/29/19 07:15 Pain Level 0 10/29/19 07:15 Comment 10/28/19 15:23 Intake & Output 10/28/19 10/28/19 10/29/19 11:59 23:59 11:59 Intake Total 360 / 1506.25 1146.25 / 1506.25 2167.50 / 2167.50 Output Total 850 / 850 900 / 900 Balance -490 / 656.25 1146.25 / 656.25 1267.50 / 1267.50 Intake: IV 360 / 1026.25 666.25 / 1026.25 2167.50 / 2167.50 Oral 480 / 480 Output: Urine 650 / 650 900 / 900 Estimated Blood Loss 200 / 200 Other: Urine Color Pale [place] Urine Appearance Clear Clear Clear Laboratory Results WBC 12.75 k/cumm (4.4-10.8) H 10/29/19 06:04 RBC 3.50 m/cumm (4.00-5.20) L 10/29/19 06:04 Hgb 10.6 g/dL (12.0-15.5) L 10/29/19 06:04 Hct 32.3 % (36.0-46.0) L 10/29/19 06:04 MCV 92.3 fL (80-95) 10/29/19 06:04 MCH 30.3 pg (27.0-33.0) 10/29/19 06:04 MCHC 32.8 g/dL (32.0-36.0) 10/29/19 06:04 RDW 13.1 % (11.7-14.6) 10/29/19 06:04 Plt Count 188 x1000/uL (130-400) 10/29/19 06:04 MPV 11.5 fL (8.0-11.0) H 10/29/19 06:04 Immature Gran % 0.2 % 10/29/19 06:04 Neutrophils % 75.9 10/29/19 06:04 Lymphocytes % 12.7 10/29/19 06:04 Monocytes % 7.1 10/29/19 06:04 Eosinophils % 3.9 10/29/19 06:04 Basophils % 0.2 10/29/19 06:04 Absolute Neutrophils 9.68 k/cumm (1.2-6.7) H 10/29/19 06:04 Absolute Lymphocytes 1.62 k/cumm (1.2-3.4) 10/29/19 06:04 Absolute Monocytes 0.91 k/cumm (0.11-0.7) H 10/29/19 06:04 Absolute Eosinophils 0.50 k/cumm (0.0-0.7) 10/29/19 06:04 Absolute Basophils 0.03 k/cumm (0.0-0.2) 10/29/19 06:04 Sodium 141 mmol/L (136-145) 10/29/19 06:04 Potassium 3.7 mmol/L (3.5-5.1) 10/29/19 06:04 Chloride 109 mmol/L (98-107) H 10/29/19 06:04 Carbon Dioxide 26.4 mmol/L (21.0-32.0) 10/29/19 06:04 Anion Gap 5.6 mmol/L (3-11) 10/29/19 06:04 BUN 20 mg/dL (7-18) H 10/29/19 06:04 Creatinine 1.47 mg/dL (0.55-1.02) H 10/29/19 06:04 Estimated GFR/1.73 m2 34.20 (mL/min/1.73m2) 10/29/19 06:04 Glucose 87 mg/dL (74-106) 10/29/19 06:04 Calcium 8.8 mg/dL (8.5-10.1) 10/29/19 06:04 Magnesium 1.9 mg/dL (1.8-2.4) 10/28/19 06:50 Total Bilirubin 0.5 mg/dL (0.2-1.0) 10/27/19 15:30 AST 19 U/L (15-37) 10/27/19 15:30 ALT 21 U/L (14-59) 10/27/19 15:30 Alkaline Phosphatase 92 U/L (46-116) 10/27/19 15:30 Troponin I < 0.05 ng/Ml (<0.06) 10/27/19 15:30 Total Protein 7.2 g/dL (6.4-8.2) 10/27/19 15:30 Albumin 3.4 g/dL (3.4-5.0) 10/27/19 15:30 COVID-19 PCR Negative (Negative) 10/27/19 16:12 Nasopharyn COVID-19 PCR Not Applicable 10/27/19 16:12 Ref Test Perform Site [facility] lab 10/27/19 16:12 Patient ABO/Rh A Positive 10/27/19 15:30 Antibody Screen Negative 10/27/19 15:30
[2019-10-29] MEDS: oxyCODONE 5 MG TAB PO (14:00)
--- NOTE | 2019-10-29 14:38 | PTTR_ITS ---
Date of service: 10/29/19 Time of Service: 14:38 PT Notes Visit Reasons: LEFT HIP FX Inpatient Physical Therapy Treatment Note [facility] Date: 10/28/2019 Precautions: High fall risk. Standard precautions. Weight WBAT on left LE. Subjective: Patient reports left hip area is being tender and not very comfortable. She denies headache, dizziness, chest pain when asked. Objective: General Observation: IV in the right UE. Mepilex Ag over hip surgical incision. Patterson catheter in place. Anti-thromboembolic pumps to bilateral legs. TEDS to both legs. Mental Status: Patient is oriented to person only. She is unable to tell time, the place where she is at, and is unable to fully follow instructions. Pain: Mild to moderate pain reported on left hip during the afternoon session. Nurse notified. Bed Mobility/Transfers: Supine to sit minimal assist with HOB at 30 degrees requiring moderate verbal cueing for sequence Sit to stand minimal assist 2 with moderate verbal cueing for hand placement and overall sequencing Stand to sit minimal assist 2 with moderate verbal cueing for hand placement and overall sequencing Bed to chair minimal assist 2 with moderate verbal cueing for hand placement and overall sequencing Chair to bed minimal assist 2 with moderate verbal cueing for hand placement and overall sequencing Gait: Session 1??Alecia was able to tolerate level surface ambulation of 10 feet and 150 feet for the morning sessions using front wheeled walker initially requiring minimal assist but only needed contact-guard assist for the second morning session once pain medication took effect. Reciprocal step to gait pattern. Moderate verbal cueing needed for walker management and directional changes. Session 2??Alecia pointed to left hip being tender and only tolerated about 30 feet using front wheeled walker with CGA and wheelchair follow of PT. [place] right step length. Step to gait pattern. Antalgic gait more pronounced. THERA EX: Session 1??Alecia tolerated seated level exercises consisting of ankle dorsiflexion x10, ankle plantarflexion x10, long arc quads x10, seated hip flexion x10, seated hip abduction x10, and seated knee flexion x 10 with tolerable pain reported on the left hip. Session 2??Alecia tolerated seated level exercises consisting of ankle dorsiflexion x10, ankle plantarflexion x10, long arc quads x10, seated hip flexion x10, seated hip abduction x10, and seated knee flexion x 10 with to lerable pain reported on the left hip with report of 5-6 over 10 reported on the left hip. Assessment: Alecia did significantly better for the morning session with pain very well controlled and with anesthesia effects fully resolved. Patient is able to follow single step commands but continues to demonstrate impaired safety awareness and is impulsive. She remains lacking of insight to functional deficits due to pre-existing dementia. She continues to need moderate verbal cueing for sequencing and overall safety. States she continues to present with functional mobility decline requiring an assistive device for all mobility ADL performance to reduce fall risk. Plan of Care/Treatment Plan: 1-2x/day, 7 days/week x 1 week. Continue with physical Therapy intervention for strengthening, bed mobility, transfers, gait, stairs, balance training, use of assistive device. DISCHARGE RECOMMENDATIONS: Patient will benefit from assisted facility placement for continued skilled physical therapy services in order to progress mobility level, strength, and balance in preparation for a safe discharge to home with . TREATMENT CODE/TIME: Session 1?? 45244 x29 minutes beginning at 9:26 AM, [id number] x 15 minutes beginning at 10:47 AM. Session 2??[id number] x 17 minutes beginning at 13:38 PM, [id number] x 25 minutes beginning at 14:38 PM.
--- NOTE | 2019-10-29 14:55 | CHAPLAIN ---
Alecia was sitting in her chair when I visited. She was pleasant. She said she doesn't know why she's here and that she's feeling fine, other than a bit of a runny nose. She easily carried on a conversation. I am not sure if the information she shared is accurate.
--- NOTE | 2019-10-29 15:29 | PDOC.CMPRO ---
- If Service Date Differs Date of service: 10/29/19 Time of Service: 15:29 Care Management Progress Note S/O: Alecia was sitting up in her chair when CM met with her. She was pleasantly confused during conversation. She did not remember working with PT, which she did this morning. She reported that she was feeling well, and wasn't in pain. Per provider, she may be ready for discharge tomorrow. The provider agrees that Alecia will thrive in her familiar setting. CM called and spoke with Braxton, her , to update him on the plan. He stated that he agreed with the plan to have Alecia return home tomorrow. He reported that they are building a ramp at home, but even if it is not complete, they will be able to get her in the house. He also stated that she will need a FWW upon discharge, as they do not currently own one. CM will continue to follow. A: Alecia is an 79 year old female admitted to [facility] on 10/27/19 with a Left Hip Fracture. P: Alecia will return home when medically cleared with new orders for RN, PT. She will follow up with her surgeon and discharge plan of care. CM will continue to support Alecia and communicate daily with Braxton regarding Alecia's progress.
[2019-10-29 15:40] VITALS: BP 142/78; PULSE 55; RESP 18; TEMP 36.8; O2SAT 98
[2019-10-29 19:10] VITALS: BP 92/59; PULSE 52; RESP 19; TEMP 37; O2SAT 96
[2019-10-29 23:40] VITALS: BP 152/82; PULSE 58
[2019-10-30] MEDS: Acetaminophen 325 MG TAB PO ×2 (06:16→11:35)
[2019-10-30] MEDS: Levothyroxine 25 MCG TAB PO (06:16)
[2019-10-30 07:22] VITALS: BP 101/56; PULSE 47; RESP 18; TEMP 36.8; O2SAT 97
[2019-10-30] MEDS: Donepezil 5 MG TAB 10 MG PO (07:37)
[2019-10-30] MEDS: Ketorolac 15 MG/ML VIAL IVP (07:37)
[2019-10-30] MEDS: Docusate Sodium 100 MG CAP PO (07:37)
[2019-10-30] MEDS: Cetirizine 10 MG TAB PO (07:37)
[2019-10-30] MEDS: Cholecalciferol (Vitamin D3) 1,000 UNIT TAB 1000 UNITS PO (07:37)
[2019-10-30] MEDS: Aspirin 81 MG CHEW PO (07:37)
[2019-10-30] MEDS: Normal Saline Flush 10 ML SYR IVP (07:37)
[2019-10-30] MEDS: Polyethylene Glycol 3350 17 GM PACKET PO (07:37)
--- NOTE | 2019-10-30 11:35 | W.PM.PROGNOT ---
Date of Service Date of service: 10/30/19 Time of Service: 11:35 Assessment and Plan Assessment and plan (1) Displaced fracture of left femoral neck: Status: Acute Assessment and plan: Alecia is an 79-year-old status post anterior left hip cemented hemiarthroplasty for displaced femoral neck fracture. She is doing well. She has made excellent gains so she should be able to discharge home with the support of her and home health services. She should use a walker at all times for ambulatory stability. She should continue aspirin 81 mg twice daily for at least 30 days postoperatively. I recommend she use Tylenol and an anti-inflammatory for primary pain control, hydrocodone or tramadol for backup breakthrough if necessary. She may weight-bear as tolerated without restrictions. Discharge instructions are below. Hip Discharge Instructions Activity: The most important activity is to walk. You should try to take short walks a few times a day. You have no restrictions on movement or positioning, but do not try to force what you do. There will be some stiffness and weakness with hip flexion (lifting your knee). ALWAYS use a walker for walking and moving to ensure against a fall. - Home health physical therapy can be helpful to help return you to a normal gait and improve your flexibility and strength. This will start at discharge. - You should wear the EMELIAN hose on both legs for 2 weeks. Dressing: Keep the surgical dressing in place for at least one week. After the first week it may be removed and replace with light gauze and tape or nothing. It may get wet after 3 days but avoid soaking the dressing. Most will put a clear cling wrap dressing over the wound. If it does get wet, just lightly pat dry. All of the sutures are buried in the skin and do not need to be removed. If the area at the top of the incision becomes damp or redenned, place some clean gauze on top of this area when sitting to keep the skin from touching. Medications: - You should take Tylenol and an anti-inflammatory as your primary pain control medications - You will be taking aspirin 81mg twice a day for DVT prevention unless instructed otherwise. - If you have constipation you should take Colace or Miralax (both [id number]). It takes most people 3-4 days to have a bowel movement. Follow-up: 4 weeks Subjective Subjective Interval history since last seen: Alecia reports to be doing well. She has no complaints of pain. Nursing reports that she has been relatively independent with walking and with transfers. She does require some verbal cues to remind her to take her time, gain her balance, and use the walker correctly. However, she has not had any falls. She has not complained of pain limiting her ability to move. Exam Narrative Exam Narrative: Standing in front of the bed prior to transfer. Evaluation the left hip dressing shows a clean dry and intact dressing. Some mild swelling about the left thigh. No signs of infection. Objective Objective Clinical Data: Vital Signs Temperature 36.8 C 10/30/19 07:22 Temperature Source Temporal Artery Scan 10/30/19 07:22 Pulse 47 L 10/30/19 07:22 Pulse Rhythm Regular 10/30/19 09:28 Respiratory Rate 18 10/30/19 07:22 Respiratory Effort Non-Labored 10/30/19 09:28 Respiratory Depth Normal 10/30/19 09:28 Respiratory Pattern Normal 10/30/19 09:28 Blood Pressure 101/56 L 10/30/19 07:22 Blood Pressure Position Supine 10/27/19 14:34 Pulse Oximetry 97 10/30/19 07:22 Oxygen Delivery Method Room Air 10/30/19 07:22 Oxygen Flow Rate 0 10/30/19 07:22 Pain Level 2 10/30/19 07:37 Comment 10/28/19 15:23 Intake & Output 10/29/19 10/29/19 10/30/19 11:59 23:59 11:59 Intake Total 2287.50 / 2897.50 610 / 2897.50 Output Total 1125 / 1425 300 / 1425 Balance 1162.50 / 1472.50 310 / 1472.50 Intake: IV 2167.50 / 2167.50 Oral 120 / 730 610 / 730 Output: Urine 1125 / 1425 300 / 1425 Other: Urine Color Straw Straw Urine Appearance Clear Cloudy Cloudy Urine Odor Normal Voiding Methods Bedside Commode Laboratory Results WBC 12.75 k/cumm (4.4-10.8) H 10/29/19 06:04 RBC 3.50 m/cumm (4.00-5.20) L 10/29/19 06:04 Hgb 10.6 g/dL (12.0-15.5) L 10/29/19 06:04 Hct 32.3 % (36.0-46.0) L 10/29/19 06:04 MCV 92.3 fL (80-95) 10/29/19 06:04 MCH 30.3 pg (27.0-33.0) 10/29/19 06:04 MCHC 32.8 g/dL (32.0-36.0) 10/29/19 06:04 RDW 13.1 % (11.7-14.6) 10/29/19 06:04 Plt Count 188 x1000/uL (130-400) 10/29/19 06:04 MPV 11.5 fL (8.0-11.0) H 10/29/19 06:04 Immature Gran % 0.2 % 10/29/19 06:04 Neutrophils % 75.9 10/29/19 06:04 Lymphocytes % 12.7 10/29/19 06:04 Monocytes % 7.1 10/29/19 06:04 Eosinophils % 3.9 10/29/19 06:04 Basophils % 0.2 10/29/19 06:04 Absolute Neutrophils 9.68 k/cumm (1.2-6.7) H 10/29/19 06:04 Absolute Lymphocytes 1.62 k/cumm (1.2-3.4) 10/29/19 06:04 Absolute Monocytes 0.91 k/cumm (0.11-0.7) H 10/29/19 06:04 Absolute Eosinophils 0.50 k/cumm (0.0-0.7) 10/29/19 06:04 Absolute Basophils 0.03 k/cumm (0.0-0.2) 10/29/19 06:04 Sodium 141 mmol/L (136-145) 10/29/19 06:04 Potassium 3.7 mmol/L (3.5-5.1) 10/29/19 06:04 Chloride 109 mmol/L (98-107) H 10/29/19 06:04 Carbon Dioxide 26.4 mmol/L (21.0-32.0) 10/29/19 06:04 Anion Gap 5.6 mmol/L (3-11) 10/29/19 06:04 BUN 20 mg/dL (7-18) H 10/29/19 06:04 Creatinine 1.47 mg/dL (0.55-1.02) H 10/29/19 06:04 Estimated GFR/1.73 m2 34.20 (mL/min/1.73m2) 10/29/19 06:04 Glucose 87 mg/dL (74-106) 10/29/19 06:04 Calcium 8.8 mg/dL (8.5-10.1) 10/29/19 06:04 Magnesium 1.9 mg/dL (1.8-2.4) 10/28/19 06:50 Total Bilirubin 0.5 mg/dL (0.2-1.0) 10/27/19 15:30 AST 19 U/L (15-37) 10/27/19 15:30 ALT 21 U/L (14-59) 10/27/19 15:30 Alkaline Phosphatase 92 U/L (46-116) 10/27/19 15:30 Troponin I < 0.05 ng/Ml (<0.06) 10/27/19 15:30 Total Protein 7.2 g/dL (6.4-8.2) 10/27/19 15:30 Albumin 3.4 g/dL (3.4-5.0) 10/27/19 15:30 COVID-19 PCR Negative (Negative) 10/27/19 16:12 Nasopharyn COVID-19 PCR Not Applicable 10/27/19 16:12 Ref Test Perform Site [facility] lab 10/27/19 16:12 Patient ABO/Rh A Positive 10/27/19 15:30 Antibody Screen Negative 10/27/19 15:30
--- NOTE | 2019-10-30 12:24 | PT.INDS ---
Date of service: 10/30/19 Time of Service: 12:24 PT Notes Visit Reasons: LEFT HIP FX Inpatient Physical Therapy Discharge Summary Dates: October 30, 2019 Dates of Service: 10/28/2019-10/30/2019 SUBJECTIVE: Alecia reports that she is doing well. She is having less pain in her hip. She feels that she is able to move about easier. OBJECTIVE: Pain: 2/10 ROM: Right Upper Extremity: Shoulder Flexion WFL. Shoulder abduction WFL. Elbow flexion WFL. Wrist flexion WFL. Opening and closing of hand WFL. Left Upper Extremity: Shoulder Flexion WFL. Shoulder abduction WFL. Elbow flexion WFL. Wrist flexion WFL. Opening and closing of hand WFL. Right Lower Extremity: Hip flexion WFL. Hip abduction WFL. Knee flexion WFL. Ankle dorsiflexion WFL. Ankle plantarflexion WFL. Left Lower Extremity: Hip flexion unable to lift beyond 90 degrees while seated on the edge of bed. Hip abduction WFL. Knee flexion WFL. Knee extension WFL. Ankle dorsiflexion WFL. Ankle plantarflexion WFL. Strength: Right Upper Extremity: Shoulder flexors 5/5. Shoulder abductors 5/5. Elbow flexors 5/5. Elbow extensors 5/5. Direct Mail Clerk strong. Left Upper Extremity: Shoulder flexors 5/5. Shoulder abductors 5/5. Elbow flexors 5/5. Elbow extensors 5/5. Direct Mail Clerk strong. Right Lower Extremity: Hip flexors 4/5. Hip abductors 4/5. Knee flexors 4/5. Knee extensors 4/5. Ankle dorsiflexors 4/5. Ankle plantarflexors 4/5. Left Lower Extremity:Hip flexors 3+/5. Hip abductors 3+/5. Knee flexors 4-/5. Knee extensors 4/5. Ankle dorsiflexors 4-/5. Ankle plantarflexors 4-/5. Bed Mobility/Transfers: Sit-stand: CGA Stand-sit: CGA Gait: FWW, WBAT L LE, CGA 30 ft step to pattern from chair to bathroom. Patient then up with nursing completed small loop 150 ft. Balance: Static Sitting: Normal Dynamic Sitting: Normal Static Standing: Good Dynamic Standing: Fair ASSESSMENT: Alecia demonstrates improved mobility and transfers. She is having less overall pain in her left LE. She does continue to require some cueing to utilize her walker correctly. GOALS Goals X1 week 1. Supine-Sit minimal assist (MET) 2. Sit-Supine minimal assist (MET) 3. Sit-Stand minimal assist with moderate verbal cues using front wheeled walker (MET) 4. Stand-Sit minimal assist with moderate verbal cues using front wheeled walker (MET) 5. Bed-Chair minimal assist with moderate verbal cues using front wheeled walker (MET) 6. Chair-Bed minimal assist with moderate verbal cues using front wheeled walker (MET) 7. minimal assist with moderate verbal cues using front wheeled walker gait on level surface with use of least restrictive device for at least 100 feet without report of pain nor dyspnea (MET) 8. Minimal assist stair negotiation while holding onto bilateral rails for at least 5 steps without report of pain nor dyspnea (N/A) 9. Good static and dynamic standing balance/tolerance (MET for static balance, dynamic standing Fair) DISCHARGE PLAN/RECOMMENDATIONS: Patient will require services to promote mobility and strength. [id number], [id number] 30 minutes, 8:50 AM DANA Quevedo
--- NOTE | 2019-10-30 12:36 | DSE_ITS ---
Date of service: 10/30/19 Time of Service: 12:36 DS: Diagnosis Discharge Diagnosis (1) Displaced fracture of left femoral neck: Status: Acute Discharge Plan Disposition Patient Disposition: HOME W/HOME HEALTH SERVICE Condition: Stable Discharge Details Chief Complaint: Orthopedic Clinical Impression: Fracture of left hip Reason For Visit: LEFT HIP FX Admit Date/Time: 10/27/19 15:33 Admit Provider: David Carlos Attending Provider: David Carlos Primary Care Provider: Kerri Villanueva ED Provider: Maggy Smith Hospital Course Hospital Course: This is an 79-year-old female with past medical history of dementia who sustained a mechanical fall who underwent an anterior left hip cemented hemiar throplasty for displaced femoral neck fracture. Her post operative course was unremarkable with the exception of some delirium in the evenings/night which was expected in this setting. She started working with physical therapy and has been safely re-ambulating with a walker. her pain has been well managed. case management has been working closely with the family on discharge planning and it was felt to be in the patients best interest to discharge to home. she has been medically stable, is eating and drinking well and arrangements have been made for her to discharge to home with home health services, including nursing, PT/OT and medical billing assistant. Home Meds and New Rx's Prescriptions: New acetaminophen [Tylenol] 325 mg Tablet 650 mg PO Q6H Qty: 120 RF: 0 docusate sodium [Colace] 100 mg Capsule 100 mg PO BID Qty: 0 RF: 0 aspirin 81 mg Tablet,Chewable 81 mg PO BID Qty: 60 RF: 0 Continued Zyrtec 10 MG capsule 10 mg PO DAILY RF: 0 cyanocobalamin (vitamin B-12) 5,000 MCG tablet,disintegrating 5,000 mcg PO DAILY Qty: 100 RF: 3 polyethylene glycol 3350 [Miralax] 17 gram powder in packet 17 gm PO DAILY PRNQty: 224 RF: 3 levothyroxine 25 mcg tablet 25 mcg PO DAILY Qty: 90 RF: 4 donepezil [Aricept] 10 mg tablet 10 mg PO DAILY Qty: 90 RF: 4 lisinopril 10 mg tablet 10 mg PO DAILY Qty: 90 RF: 3 cholecalciferol (vitamin D3) 1,000 UNIT tablet 1,000 units PO DAILY RF: 0 Discontinued aspirin [Aspirin Low-Strength] 81 MG tablet,chewable 81 mg PO DAILY RF: 0 Discharge Instructions Instructions: ORIF of Hip Fracture (DC) Additional Instructions: You should wear the EMELINA hose on both legs for 2 weeks. Keep the surgical dressing in place for at least one week. After the first week it may be removed and replace with light gauze and tape or nothing. It may get wet after 3 days but avoid soaking the dressing. Most will put a clear cling wrap dressing over the wound. If it does get wet, just lightly pat dry. All of the sutures are buried in the skin and do not need to be removed. If the area at the top of the incision becomes damp or reddened, place some clean gauze on top of this area when sitting to keep the skin from touching. - You should take Tylenol and an anti-inflammatory as your primary pain control medication - You will be taking aspirin 81mg twice a day for DVT prevention unless instructed otherwise. - If you have constipation you should take Colace or Miralax (both [id number]). It takes most people 3-4 days to have a bowel movement. Stand Alone Forms: Nursing Discharge Form Referrals: Kerri Villanueva NP [Primary Care Provider] - (Please call to make a F/U appoi ntment for 1 week from today. ) Jovon Murray MD [ [facility] STAFF PHYSICIAN] - (PLease call to make an appointment for 4 weeks) Activity:: walker at all times for gait safety and stability, full weight bearing as tolerated. Equipment/Supplies:: Walker Diet:: As Tolerated Discharge Orders Discharge Orders: Discharge Order (Routine); Ordered 10/30/19 Ordered By: Shantell Sosa Discharge Data Discharge Date/Time-TO BE ENTERED AT DEPARTURE: 10/30/19 14:55 DS: Summary Status at Discharge Functional status at discharge: uses cane/walker Overall status at discharge: patient is progressing back to baseline Mental Status: mental status grossly normal Speech and Movement: speech and movement normal Mood: congruent mood Affect: normal affect Exam Const General: cooperative, healthy appearing, comfortable, no acute distress and frail appearing (elderly female of stated age) Nutritional Appearance: thin HENMT Head: normal to inspection, normocephalic and atraumatic Mouth: oral mucosae normal Resp Effort & Inspection: normal respiratory effort Auscultation: clear to auscultation bilaterally Cardio Rate: regular rate Rhythm: regular rhythm GI Inspection: normal to inspection Palpation: soft Auscultation: normal bowel sounds Skin Lesions: lesion noted (surgical incision not visualized, dressing intact, no surrounding erythema) Rashes: no rashes Neuro General: patient alert, patient awake, oriented Patient Orientation: Person and moves all extremities Gait: gait assisted Method: walker Motor: muscle tone normal throughout Extrem General: normal to inspection Psych Appearance: grossly normal Mental Status: mental status grossly normal Speech and Movement: speech and movement normal Mood: congruent mood Affect: normal affect Attitude: cooperative Thought Process: other (dementia at baseline) Thought Content: other (dementia at baseline) Insight: poor Judgment: poor DS: Data Vitals/I&O Vitals and I&O: Vital Signs Temperature 36.8 C 10/30/19 07:22 Temperature Source Temporal Artery Scan 10/30/19 07:22 Pulse 47 L 10/30/19 07:22 Pulse Rhythm Regular 10/30/19 09:28 Respiratory Rate 18 10/30/19 07:22 Respiratory Effort Non-Labored 10/30/19 09:28 Respiratory Depth Normal 10/30/19 09:28 Respiratory Pattern Normal 10/30/19 09:28 Blood Pressure 101/56 L 10/30/19 07:22 Blood Pressure Position Supine 10/27/19 14:34 Pulse Oximetry 97 10/30/19 07:22 Oxygen Delivery Method Room Air 10/30/19 07:22 Oxygen Flow Rate 0 10/30/19 07:22 Pain Level 0 10/30/19 11:35 Comment 10/28/19 15:23 Intake & Output 10/29/19 10/30/19 10/30/19 23:59 11:59 23:59 Intake Total 610 / 2897.50 Output Total 300 / 1425 Balance 310 / 1472.50 Intake: Oral 610 / 730 Output: Urine 300 / 1425 Other: Urine Color Straw Urine Appearance Cloudy Cloudy Urine Odor Normal Voiding Methods Bedside Commode [facility] Medical History Dementia (Acute) Depressive disorder (Inactive 01/03/13) Hypertension (Inactive) Asked Braxton to check her blood pressure several times a week and write it down. He is going to bring in a record somewhere in 2 or 3 weeks to see what she is doing at home. Her pressure has been much higher in the past and right now will accept this pressure. Myocardial infarction (Inactive 05/26/95) Takusubu Syndrome Surgical History Appendectomy Cholecystectomy Extraction of cataract B/L Hysterectomy, Laproscopic WITH BSO Ligation of fallopian tube Family History Mother Personal history of malignant neoplasm Father No problems noted. Social History Smoking/Tobacco Use Status: Former Tobacco Use Alcohol Intake: current Alcohol Intake frequency: a few times a month Drug use: Never What type of physical activity do you participate in: walking Duration: 60-90 minutes/day Do you feel safe in your relationship?: Yes
--- NOTE | 2019-10-30 12:51 | PDOC.HHF2F_ITS ---
Home Health Certification Home Health Certification: 1. Encounter Date and Reason I certify that GREGOR MITCHELL was seen by Shantell Sosa on 10/30/19 and that I had a [id number] encounter with this patient that meets the physician face to face encounter requirements. 2. Clinical Findings Supporting Skilled Need and Homebound Status I certify that home health services are medically necessary, include either intermittent fci and/or physical/speech therapy, and that this patient is homebound in that absences from the home require considerable and taxing effort and are infrequent or of short duration, or are attributable to the need to receive medical care. [X] (a) Attached documentation from encounter provides clinical findings supporting skilled need and homebound status (including what assistance patient requires to leave the home). The encounter with the patient was in whole, or in part, for the following medical condition, which is the primary reason for home health care: LEFT HIP FX Shelter: routine nursing care for medication oversight, pain management, dressing changes and wound care. Physical and Occupational Therapy: routine post operative hip, evaluation and treatment. 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 Homebound: patient is unable to leave house unassisted and ambulation is severely limited d/t strength and endurance and patients cognitive impairment associated with baseline dementia makes leaving home unassisted unsafe 3. Certification and Authentication I certify that I composed the above information based on my clinical judgement relating to this patient's medical condition and, if applicable, clinical findings communicated to me by the NPP or inpatient physician who performed the Home Health Referral. All further orders will be obtained through (Community Based Physician - PCP)
--- NOTE | 2019-10-30 13:25 | W.NUTRFU ---
Date of service: 10/30/19 Time of Service: 13:25 Nutritional Follow up NOTE: 79 year old female admitted with left hip fracture. BMI wnl for age. PMH: dementia. Following Heart Healthy Diet with adequate intake (>50%). Not at risk for nutritional decline. Time Spent in Nutritional Counseling and Treatment: 0 time spent face to face
--- NOTE | 2019-10-30 15:28 | PDOC.CMDIS ---
- If Service Date Differs Date of service: 10/30/19 Time of Service: 15:28 LACE Index Scoring Tool - Questions: Length of Stay (in days): 4 - 6 Acuity (Admit via E.D.?): Yes Comorbidities: Dementia E.D. Visits: 1 - Answers: Total Score: 11 Risk of Readmission: High Risk Care Management Discharge Reason for Hospitalization: Fracture of left hip Discharge Plan: Alecia will return home today with new orders for RN, PT, [facility]. [facility] contacted with the new referral. Her , Braxton will drive her home via private vehicle. Her primary RN will go through discharge paperwork with Braxton when he arrives. coordinated a FWW for her to bring home, recommended by PT. She will follow up with her PCP and Ortho, as recommended. She is happy to be going home. Patient/Family Education Needs: Review discharge instructions regarding activity levels and medications, discussion of goals of care. Services Needed at Discharge: DME Agency (FWW), Home Health Care Services ( RN, PT, [facility])
== END 2019-10-30 14:55 | disposition home health service (06) | DRG 470 ==
LOC: ER 15:49 → MS 16:38
PROVIDERS: Nurse Practitioner Family; Student in an Organized Health Care Education/Training Program; Admitting Provider Internal Medicine; Emergency Provider Physician Assistant; PCP Nurse Practitioner; Visit Provider Internal Medicine
PROC: 0SRS039 Replacement of Left Hip Joint, Femoral Surface with Ceramic Synthetic Substitute, Cemented, Open Approach (ICD-10-PCS; CPT 27130; principal; 2019-10-28 08:00)
DX: S72.012A Unspecified intracapsular fracture of left femur, initial encounter for closed fracture (principal); W19.XXXA Unspecified fall, initial encounter; M25.552 Pain in left hip; F03.90 Unspecified dementia, unspecified severity, without behavioral disturbance, psychotic disturbance, mood disturbance, and anxiety; I10 Essential (primary) hypertension; E03.9 Hypothyroidism, unspecified
CPT/HCPCS: 27125; 36415; 64447; 76942; 80048; 80053; 86850; 86900; 86901; 93005; 97110; 97163; 97530; 99222; 99223; 99233; 99239; 99253; 99285; NC; U0003; 70450; 71045; 72125; 73501; 73502; 83735; 84484; 85014; 85018; 85025; 93010; J0690; J1885; J2405

== ENCOUNTER 2020-08-12 03:17 | Outpatient (CLI) | payer MEDICARE, OTHER, SELFPAY ==
[2020-08-12 12:30] LABS: HCT 39.3 % (36.0-46.0); HGB 12.3 g/dL (11.2-15.7); MCH 30.5 pg (27.0-33.0); MCHC 31.3 % (32.0-36.0); MCV 97.5 fL (80-95); MPV 11.8 fL (8.0-11.0); Platelet Count 306 10^3/uL (130-400); RBC 4.03 10^6/uL (3.93-5.22); RDW 13.1 % (11.7-14.6); RDW-SD 47.2 fL; WBC 7.95 10^3/uL (4.4-10.8)
[2020-08-12 13:04] LABS: CREATININE 1.5 mg/dL (0.55-1.02); Estimated GFR 33.41 (mL/min/1.73m2); Potassium 4.2 mmol/L (3.5-5.1); TSH 5.76 uIU/mL (0.36-3.74)
[2020-08-12 13:06] LABS: Vitamin B12 > 2000 pg/mL (193-986)
== END 2020-08-12 03:18 | disposition home or self-care (01) ==
LOC: LOS 03:17
PROVIDERS: PCP Nurse Practitioner; Visit Provider Nurse Practitioner
DX: I10 Essential (primary) hypertension (principal); R09.89 Other specified symptoms and signs involving the circulatory and respiratory systems; E53.8 Deficiency of other specified B group vitamins
CPT/HCPCS: 36415; 85027; 82565; 82607; 84132; 84443

== ENCOUNTER 2020-09-29 10:19 | Emergency (ER) | payer MEDICARE, OTHER, SELFPAY ==
[2020-09-29 10:18] VITALS: BP 144/56; PULSE 55; RESP 16; TEMP 36.8; O2SAT 98
[2020-09-29 10:30] VITALS: RESP 16
--- NOTE | 2020-09-29 11:07 | ED.GENADUL_ITS ---
Discharge Plan Disposition Patient Disposition: HOME Condition: Stable Discharge Details Clinical Impression: Dementia Primary Care Provider: Kerri Villanueva ED Provider: Sarah Mai Home Meds and New Rx's Prescriptions: Continued Zyrtec 10 MG capsule 10 mg PO DAILY RF: 0 polyethylene glycol 3350 [Miralax] 17 gram powder in packet 17 gm PO DAILY PRNQty: 224 RF: 3 donepezil [Aricept] 10 mg tablet 10 mg PO DAILY Qty: 90 RF: 4 lisinopril 10 mg tablet 10 mg PO DAILY Qty: 90 RF: 3 levothyroxine 50 mcg tablet 50 mcg PO DAILY Qty: 60 RF: 0 cholecalciferol (vitamin D3) 1,000 UNIT tablet 1,000 units PO DAILY RF: 0 acetaminophen [Tylenol] 325 mg Tablet 650 mg PO Q6H Qty: 120 RF: 0 aspirin 81 mg Tablet,Chewable 81 mg PO BID Qty: 60 RF: 0 Discharge Instructions Instructions: Dementia (ED) Additional Instructions: Please return immediately to the emergency department if yourn develops any new or worsening symptoms, if her condition does not improve as expected, or if you become otherwise concerned. It is extremely important that you call soon as possible to make an appointment for your to be seen in follow-up for this visit by her primary care doctor. Referrals: Kerri Villanueva, [employer] INSTALLER SUPERVISOR [Primary Care Provider] - Discharge Data Discharge Date/Time-TO BE ENTERED AT DEPARTURE: 09/29/20 11:33 Medical Decision Making Alecia Zhu is an 80-year-old woman with a history of dementia, hypertension, hypothyroidism who presented to the emergency department after leaving the house and walking to a nearby carwash and then falling to stand. On physical exam patient is well and nontoxic-appearing. She is walking about her exam room without issue, stating repeatedly that she hates sitting down and would like to leave. Neurologically nonfocal. Extremities are atraumatic. Concern for chronic dementia, with fall not resulting in acute emergent medical condition. As patient and her both are requesting discharge without further intervention and patient exam is apparently at her baseline, no emergent medical condition has been identified and patient is appropriate for discharge at this time. I had a lengthy discussion with Patient's regarding return to [facility] department precautions, home care, and importance of outpatient follow- up. Pt's verbalizes understanding of the plan and is amenable. Patient discharged to home with clear plan for outpatient follow-up. All questions were answered. Disposition decision was made weighing the risks and benefits of hospitalization versus outpatient treatment, the risk for further decompensation, and the patient's wishes. Medical Records Medical records reviewed: Yes I reviewed the patient's medical records. HPI General Mode of arrival: EMS . Date/Time Provider Initiated Documentation: 09/29/20 10:23 . Limitations to Documentation: other (Chronic dementia) . Information obtained by: patient, family, EMS, RN notes reviewed and old records reviewed . HPI Narrative: Alecia Zuh is an 80-year-old woman with a history of dementia, hypertension, hypothyroidism presenting to the emergency department for fall, confusion. Per EMS, they were called to scene by a bystander. Patient was near [facility] and fell in the sand. At the scene there was no apparent injury and patient was walking. Patient was transported to the emergency department by EMS because she was unable to explain to EMS how she arrived at the car [facility]. Upon arrival to the emergency department, it was determined that patient is in the impression from [place] and her was contacted and is now present in the emergency department. Per patient's , while he was showering patient left the house. Patient reports that she tried to get into the car but it was locked and patient started walking. Patient reports that she got lost. Patient reports that she tripped and stand because I was feeling so irritated at being lost. Patient reports that she feels fine and wants to go home. She denies any pain or any other symptoms. Patient states that she did not hit her head. Patient's reports that patient is currently at her baseline and her behavior is normal for her. He reports that she has tried to leave the house secondary to her dementia. He has no concerns for acute process at this time and also requests discharge to home. Patient and deny any pain, fever, vomiting, shortness of breath, cough. Patient's reports that patient has been in her usual state of health without any symptoms. Related Data Home Medications Medication Instructions Recorded Confirmed cholecalciferol (vitamin D3) 1,000 units PO DAILY 12/18/12 09/29/20 Zyrtec 10 mg PO DAILY 05/28/15 09/29/20 polyethylene glycol 3350 17 gram 17 gm PO DAILY PRN #224 gm 04/13/18 09/29/20 oral powder packet acetaminophen [Tylenol] 650 mg PO Q6H #120 tab 10/30/19 09/29/20 aspirin 81 mg PO BID #60 tab 10/30/19 09/29/20 donepezil 10 mg tablet 10 mg PO DAILY #90 tab-cap 06/13/20 09/29/20 lisinopril 10 mg tablet 10 mg PO DAILY #90 tab-cap 07/11/20 09/29/20 levothyroxine 50 mcg tablet 50 mcg PO DAILY #60 tab 08/13/20 09/29/20 Previous Rx's Medication Instructions Recorded acetaminophen [Tylenol] 650 mg PO Q6H #120 tab 10/30/19 aspirin 81 mg PO BID #60 tab 10/30/19 donepezil 10 mg tablet 10 mg PO DAILY #90 tab-cap 06/13/20 lisinopril 10 mg tablet 10 mg PO DAILY #90 tab-cap 07/11/20 levothyroxine 50 mcg tablet 50 mcg PO DAILY #60 tab 08/13/20 Allergies Allergy/AdvReac Type Severity Reaction Status Date / Time acidic foods AdvReac Mild Uncoded 07/22/20 13:45 General Stated Complaint: GenMedical ANNIKA: 4 Review of Systems Narrative: Constitutional: denies fevers Eyes: denies eye pain ENT: denies ear pain, dental pain, sore throat Cardiovascular: denies chest pain Respiratory: denies SOB, cough GI: denies abdominal pain, vomiting, diarrhea : denies flank pain MSK: denies back pain, neck pain, arthralgias, myalgias Skin: denies rash Neuro: denies headaches, numbness, weakness [facility] Medical History (Updated 09/29/20 @ 11:05 by Sarah Mai MD) Dementia Depressive disorder (01/03/13) Displaced fracture of left femoral neck Hypertension Asked Braxton to check her blood pressure several times a week and write it down. He is going to bring in a record somewhere in 2 or 3 weeks to see what she is doing at home. Her pressure has been much higher in the past and right now will accept this pressure. Myocardial infarction (05/26/95) Takusubu Syndrome Perforation of tympanic membrane right; chronic Surgical History (Updated 01/24/20 @ 14:38 by Kerri Villanueva NP) Appendectomy Cholecystectomy Extraction of cataract B/L Hysterectomy, Laproscopic WITH BSO Ligation of fallopian tube Status post phlebectomy Family History Mother Personal history of malignant neoplasm Father No problems noted. Social History Smoking/Tobacco Use Status: Former Tobacco Use Smoking risk assessment performed?: Yes Alcohol Intake: current Alcohol Intake frequency: a few times a month Drug use: Never Substance use type: does not use What type of physical activity do you participate in: walking Duration: 60-90 minutes/day Do you feel safe at home: Yes Do you feel safe in your relationship?: Yes Exam Narrative Exam Narrative: Constitutional: well and [id number], pleasant, conversing normally, poor historian HENT: head atraumatic/normocephalic/normal inspection, mucous membranes moist Eyes: conjunctiva normal, sclera normal, pupils 3mm b/l Neck: no stridor, normal ROM, trachea midline Resp: normal work of breathing, speaking in full sentences Cardio: normal rate, normal rhythm GI: abdomen soft, non-tender, non-distended Skin: warm, dry, normal color, no rash Neuro: alert, not altered, grossly non-focal, normal tone Ext: no edema Psych: normal mood, normal affect Course Vital Signs Vital signs: Vital Signs Temperature 36.8 C 09/29/20 10:18 Pulse 55 L 09/29/20 10:18 Respiratory Rate 16 09/29/20 10:18 Blood Pressure 144/56 H 09/29/20 10:18 Pulse Oximetry 98 09/29/20 10:18 Temperature 36.8 C 09/29/20 10:18 Temperature Source Skin 09/29/20 10:18 Pulse 55 L 09/29/20 10:18 Respiratory Rate 16 09/29/20 10:18 Blood Pressure 144/56 H 09/29/20 10:18 Blood Pressure Position Sitting 09/29/20 10:18 Pulse Oximetry 98 09/29/20 10:18 Oxygen Delivery Method Room Air 09/29/20 10:18 Oxygen Flow Rate 0 09/29/20 10:18
== END 2020-09-29 11:33 | disposition home or self-care (01) ==
LOC: ER 11:13
PROVIDERS: Emergency Provider Student in an Organized Health Care Education/Training Program; PCP Nurse Practitioner
DX: F03.90 Unspecified dementia, unspecified severity, without behavioral disturbance, psychotic disturbance, mood disturbance, and anxiety (principal)
CPT/HCPCS: 99283; 99282

== ENCOUNTER 2021-07-04 11:03 | Emergency (ER) | payer MEDICARE, OTHER, SELFPAY ==
[2021-07-04] VITALS (18 sets, daily range): BP systolic 139–178; BP diastolic 55–162; PULSE 67–81; RESP 14–22; TEMP 36.7; O2SAT 94–99
--- NOTE | 2021-07-04 10:45 | RT.EKG_ITS ---
APPROVED REPORT Exam: Resting ECG Reason for Exam: weak Patient Location: E HR:67 bpm ECG Measurements Heart Rate 67 AXIS GA 82 P 251 QRSd 84 QRS 10 QT 407 T 54 QTc 430 Conclusion Sinus or ectopic atrial rhythm...P axis (-45,135)
--- NOTE | 2021-07-04 11:15 | DI.RAD_ITS ---
Exam(s) XR CHEST 2V PA LATERAL EXAM: XR CHEST 2V PA LATERAL CLINICAL HISTORY: weakness TECHNIQUE: 2D digital imaging was performed. COMPARISON: CR LEFT RIBS TO INCLUDE CXR from 05/24/2011 CR,XR XR CHEST 1V IN DI DEPT from 10/27/2019 FINDINGS: Poor pulmonary inflation on both views. Underlying fibrotic changes. No gross evidence of consolida tion. Heart size normal. Aorta calcified. Degenerative changes are seen in the spine. IMPRESSION: Poor pulmonary inflation. No acute abnormality. DATA REPOSITORY: RADIATION DOSE DELIVERED:
[2021-07-04 11:28] LABS: Abs Immature Grans 0.04 10^3/uL (0.0-0.06); Absolute Basophil Count 0.02 10^3/uL (0.0-0.2); Absolute Lymphocyte Count 0.77 10^3/uL (1.2-3.4); Absolute Monocyte Count 0.61 10^3/uL (0.1-0.8); Basophils % 0.2; HCT 42.6 % (36.0-46.0); HGB 13.8 g/dL (11.2-15.7); Immature Grans % 0.4; Lymphocytes % 7.7; MCH 30.1 pg (27.0-33.0); MCHC 32.4 % (32.0-36.0); MCV 92.8 fL (80-95); MPV 11.3 fL (8.0-11.0); Monocytes % 6.1; Neutrophils % 85.6; Nucleated RBC 0 %; Platelet Count 301 10^3/uL (130-400); RBC 4.59 10^6/uL (3.93-5.22); RDW 13.2 % (11.7-14.6); RDW-SD 44.8 fL; WBC 9.94 10^3/uL (4.4-10.8)
--- NOTE | 2021-07-04 11:30 | DI.CT_ITS ---
Exam(s) CT HEAD WO EXAM: CT HEAD WO CLINICAL HISTORY: weakness. TECHNIQUE: Imaging Protocol: Axial computed tomography images with coronal and sagittal reformatted images were created and reviewed COMPARISON: CT CT HEAD CERVICAL SPINE WO from 10/27/2019 FINDINGS: Ventricles and Extra axial spaces: A dilatation commensurate with atrophy. Stable size peer Hemorrhage: None. Cerebral parenchyma: Atrophy, stable.. White matter changes consistent with small vessel disease. Midline shift: None. Brainstem/Cerebellum: Normal. Calvarium: Normal. Visualized Paranasal sinuses/Mastoids: Clear. IMPRESSION: Atrophy. No acute abnormality. RADIATION DOSE DELIVERED: 655.98mGy.cm Total DLP 655.98mGy.cm Total DLP DATA REPOSITORY: All CT scans at this facility are submitted to the National Radiology Data Registry (NRDR) Dose Index Registry (DIR) with the [employer] (A[employer]). RADIATION OPTIMIZATION: All CT scans at this facility use at least one of these dose optimization te chniques: automated exposure control; mA and/or kV adjustment per patient size (includes targeted exa ms where dose is matched to clinical indication); or iterative reconstruction.
[2021-07-04 11:50] LABS: ALT 19 U/L (14-59); AST 19 U/L (15-37); Albumin 3.7 g/dL (3.4-5.0); Alkaline Phosphatase 132 U/L (46-116); Anion Gap 6.1 mmol/L (3-11); BUN 20 mg/dL (7-18); Bilirubin, Total 0.8 mg/dL (0.2-1.0); CO2 28.9 mmol/L (21.0-32.0); CREATININE 1.3 mg/dL (0.55-1.02); Calcium 9.8 mg/dL (8.5-10.1); Chloride 104 mmol/L (98-107); Estimated GFR 39.31 (mL/min/1.73m2); Glucose 101 mg/dL (74-106); Magnesium 1.9 mg/dL (1.8-2.4); Potassium 4.1 mmol/L (3.5-5.1); Sodium 139 mmol/L (136-145); TSH (W/Ref FT4) 4.86 uIU/mL (0.36-3.74); Total Protein 7.8 g/dL (6.4-8.2); Troponin I < 50 ng/L (<or=60)
--- NOTE | 2021-07-04 12:06 | ED.GENADUL_ITS ---
Discharge Plan Disposition Patient Disposition: HOME Condition: Stable Discharge Details Clinical Impression: Weakness Primary Care Provider: Kerri Villanueva ED Provider: David Bustamante Home Meds and New Rx's Prescriptions: Continued acetaminophen [Tylenol] 325 mg tablet 650 mg PO TID PRN PRN (Reason: pain) Qty: 120 RF: 0 aspirin 81 mg tablet,chewable 81 mg PO DAILY Qty: 60 RF: 0 Zyrtec 10 MG capsule 10 mg PO DAILY RF: 0 polyethylene glycol 3350 [Miralax] 17 gram powder in packet 17 gm PO DAILY PRNQty: 224 RF: 3 lisinopril 10 mg tablet 10 mg PO DAILY Qty: 90 RF: 3 levothyroxine 50 mcg tablet 50 mcg PO DAILY Qty: 60 RF: 0 Discharge Instructions Instructions: Weakness (ED) Additional Instructions: At this time your work-up here in the ER does not reveal any obvious emergent process. We did discuss admission but she would rather be home and her is comfortable taking her home in her current condition. Please watch for new or worsening symptoms and return to the ER for any concerns. I have placed you on the care management list to help assess if additional home resources may be beneficial. We also discussed that this could have been a TIA; therefore, as we discussed MRI is likely in the further evaluation. I recommend contacting your primary care provider on Tuesday to discuss your ER visit, symptoms, need for outpatient Medical Decision Making If 80-year-old female, history of dementia, presented to the ER via EMS after her called stating that this morning around 9:00 she seemed more weak generally than usual, potentially a subtle difference on the left side of her face. She did have her COVID-19 booster yesterday. He is present for my evaluation reports at this time she appears to be at her baseline mental status. She does not have any asymmetry to her face that her can appreciate. She is a palliative care patient, limiting aggressive therapy. States that they would want to keep her alive until the family could all meet and say goodbye. He tells me that her dementia has been worsening over the past year progressively but really more so over the past week or so. They have discussed placing her into a longer term care facility but states that he is doing his best to keep her at home although it is currently pushing his abilities to continue to maintain proper care of her. He tells me that he would like to take her home this evening if at all possible and to avoid any hospitalizations. Clinically she appears well, nontoxic, pleasantly confused, able to follow command. There is no glaring focal weakness. Plan is to obtain a cardiac work-up, thyroid studies, urinalysis, and obtain CT imaging of her brain. While this very well could simply be generalized weakness secondary to her COVID-vaccine yesterday, certainly cannot rule out infectious process, TIA, CVA, etc. Laboratory values today do not reveal any obvious emergent process. Renal function appears to be near baseline. TSH slightly elevated at 4.86. Troponin less than 50. Urinalysis without evidence of infection. Head CT nonacute Chest x-ray reveals atelectasis versus pneumonia. Clinically I believe this to be atelectasis. She is afebrile, lungs are clear to auscultation, O2 sats are in the high 90s on room air I had another candid conversation with the patient's . He continues to want to take her home. He does understand that she could have had a TIA and I am recommending MRI. Unfortunately we cannot obtain MRI today or tomorrow, the soonest we can obtain an MRI is likely Tuesday. He understands this and would still like to take her home. He ensures me that he will return to the ER for new or worsening symptoms. Patient was able to ambulate with assistance around the ER room which her states is near her baseline ambulation. I will place her on the care management list to help expedite potential home resources and to discuss and look into options of more long-term care if that is what they choose to do. Otherwise they will contact their primary care provider on Tuesday to discuss her ER visit need for outpatient reevaluation including likely outpatient MRI. Repeat troponin remains less than 50. Troponin was obtained 4 hours after her initial onset of symptoms. Patient continues to be at her baseline mental status. continues to request to take her home. He does understand that admission was offered for further evaluation and observation of her symptoms. Strict discharge and return precautions were provided. This documentation was generated using [employer] system, please disregard any oddities of phrase or misspellings. Medical Records Medical records reviewed: Yes I reviewed the patient's medical records. Imaging Data Radiologic Study: Attestation: I personally reviewed and interpreted this imaging study as follows: Imaging: CT Scan Radiologist's impression: PROCEDURE INFORMATION: Exam: CT Head Without Contrast Exam date and time: 07/04/2021 11:41 AM Age: 80 years old Clinical indication: Other: Weakness TECHNIQUE: Imaging protocol: Computed tomography of the head without contrast. Radiation optimization: All CT scans at this facility use at least one of these dose optimization techniques: automated exposure control; mA and/or kV adjustment per patient size (includes targeted exams where dose is matched to clinical indication); or iterative reconstruction. COMPARISON: CT HEAD CERVICAL SPINE WO 10/27/2019 3:06 PM FINDINGS: Brain: There is moderate diffuse heterogeneity of the white matter attenuation, consistent with chronic white matter ischemic changes. Moderate cerebral atrophy. No acute intracranial hemorrhage.. There are multiple small hypodensities in the basal ganglia, consistent with remote lacunar infarctions. Cerebral ventricles: No ventriculomegaly. Paranasal sinuses: Visualized sinuses are unremarkable. No fluid levels. Mastoid air cells: Visualized mastoid air cells are well aerated. Bones/joints: Stable lucency in the left occipital region No acute fracture. Soft tissues: Unremarkable. IMPRESSION: No acute intracranial hemorrhage.. Radiologic Study #2: Attestation: I personally reviewed and interpreted this imaging study as follows: Imaging: X-Ray Radiologist's impression: PROCEDURE INFORMATION: Exam: XR Chest Exam date and time: 07/04/2021 11:18 AM Age: 80 years old Clinical indication: Other: Weakness TECHNIQUE: Imaging protocol: XR of the chest. Views: 2 views. COMPARISON: XR CHEST 1V IN DI DEPT 10/27/2019 3:20 PM FINDINGS: Lungs: Mild opacity in the left base may represent atelectasis or pneumonia.. Pleural spaces: Unremarkable. No pleural effusion. No pneumothorax. Heart/Mediastinum: Unremarkable. No cardiomegaly. Bones/joints: Unremarkable. IMPRESSION: Mild opacity in the left base may represent atelectasis or pneumonia.. Lab Data Lab results reviewed: Yes I reviewed the patient's lab results. Labs: Laboratory Tests Range/Units 07/04/21 07/04/21 07/04/21 11:14 11:14 12:04 WBC (4.4-10.8) 10^3/uL 9.94 RBC (3.93-5.22) 10^6/uL 4.59 Hgb (11.2-15.7) g/dL 13.8 Hct (36.0-46.0) % 42.6 MCV (80-95) fL 92.8 MCH (27.0-33.0) pg 30.1 MCHC (32.0-36.0) % 32.4 RDW (11.7-14.6) % 13.2 Plt Count (130-400) 10^3/uL 301 MPV (8.0-11.0) fL 11.3 H Immature Gran % 0.4 Neutrophils % 85.6 Lymphocytes % 7.7 Monocytes % 6.1 Eosinophils % 0.0 Basophils % 0.2 Nucleated RBC % % 0 Absolute Neutrophils (1.2-6.7) 10^3/uL 8.50 H Absolute Lymphocytes (1.2-3.4) 10^3/uL 0.77 L Absolute Monocytes (0.1-0.8) 10^3/uL 0.61 Absolute Eosinophils (0.0-0.7) 10^3/uL 0.00 Absolute Basophils (0.0-0.2) 10^3/uL 0.02 Sodium (136-145) mmol/L 139 Potassium (3.5-5.1) mmol/L 4.1 Chloride (98-107) mmol/L 104 Carbon Dioxide (21.0-32.0) mmol/L 28.9 Anion Gap (3-11) mmol/L 6.1 BUN (7-18) mg/dL 20 H Creatinine (0.55-1.02) mg/dL 1.3 H Estimated GFR/1.73 m2 (mL/min/1.73m2) 39.31 Glucose (74-106) mg/dL 101 Calcium (8.5-10.1) mg/dL 9.8 Magnesium (1.8-2.4) mg/dL 1.9 Total Bilirubin (0.2-1.0) mg/dL 0.8 AST (15-37) U/L 19 ALT (14-59) U/L 19 Alkaline Phosphatase (46-116) U/L 132 H Troponin I (<or=60) ng/L < 50 Total Protein (6.4-8.2) g/dL 7.8 Albumin (3.4-5.0) g/dL 3.7 TSH (0.36-3.74) uIU/mL 4.86 H Free T4 (0.76-1.46) ng/dL 0.86 Urine Color (Yellow) Yellow Urine Clarity (Clear) Clear Urine pH (5-8) 7.0 Ur Specific Watts (1.005-1.025) 1.025 Urine Protein (Negative) mg/dL Negative Urine Ketones (Negative) mg/dL Negative Urine Blood (Negative) Negative Urine Nitrite (Negative) Negative Urine Bilirubin (Negative) Negative Urine Urobilinogen (Up TO 0.2) EU/dL 1.0 H Ur Leukocyte Esterase (Negative) Negative Urine Glucose (Negative) mg/dL Negative Range/Units 07/04/21 13:38 WBC (4.4-10.8) 10^3/uL RBC (3.93-5.22) 10^6/uL Hgb (11.2-15.7) g/dL Hct (36.0-46.0) % MCV (80-95) fL MCH (27.0-33.0) pg MCHC (32.0-36.0) % RDW (11.7-14.6) % Plt Count (130-400) 10^3/uL MPV (8.0-11.0) fL Immature Gran % Neutrophils % Lymphocytes % Monocytes % Eosinophils % Basophils % Nucleated RBC % % Absolute Neutrophils (1.2-6.7) 10^3/uL Absolute Lymphocytes (1.2-3.4) 10^3/uL Absolute Monocytes (0.1-0.8) 10^3/uL Absolute Eosinophils (0.0-0.7) 10^3/uL Absolute Basophils (0.0-0.2) 10^3/uL Sodium (136-145) mmol/L Potassium (3.5-5.1) mmol/L Chloride (98-107) mmol/L Carbon Dioxide (21.0-32.0) mmol/L Anion Gap (3-11) mmol/L BUN (7-18) mg/dL Creatinine (0.55-1.02) mg/dL Estimated GFR/1.73 m2 (mL/min/1.73m2) Glucose (74-106) mg/dL Calcium (8.5-10.1) mg/dL Magnesium (1.8-2.4) mg/dL Total Bilirubin (0.2-1.0) mg/dL AST (15-37) U/L ALT (14-59) U/L Alkaline Phosphatase (46-116) U/L Troponin I (<or=60) ng/L < 50 Total Protein (6.4-8.2) g/dL Albumin (3.4-5.0) g/dL TSH (0.36-3.74) uIU/mL Free T4 (0.76-1.46) ng/dL Urine Color (Yellow) Urine Clarity (Clear) Urine pH (5-8) Ur Specific Watts (1.005-1.025) Urine Protein (Negative) mg/dL Urine Ketones (Negative) mg/dL Urine Blood (Negative) Urine Nitrite (Negative) Urine Bilirubin (Negative) Urine Urobilinogen (Up TO 0.2) EU/dL Ur Leukocyte Esterase (Negative) Urine Glucose (Negative) mg/dL ECG Data Attestation: I personally reviewed and interpreted this ECG (s) as follows: Interpretation: Please see official report by Dr. Raphael. Sinus or ectopic atrial rhythm. Ventricular rate of 67. No STEMI HPI General Mode of arrival: EMS . Date/Time Provider Initiated Documentation: 07/04/21 11:16 . Limitations to Documentation: altered mental status (baseline dementia) . Information obtained by: family () . HPI Narrative: 80-year-old female, past medical history of hypothyroidism, bradycardia, hypertension, dementia, presenting to the ER from home via EMS for evaluation of weakness. states that she received her COVID booster yesterday. This morning around 9 AM she had generalized weakness, difficulty standing in general. He felt as though she may have had a very subtle left facial asymmetry but reports that he does not notice any abnormality now. Patient is pleasantly demented, has no concerns at this time. reports that she appears to be at her normal cognition. He denies recent illness or trauma. States that he would prefer to take her home if at all possible. reports that he has noticed a steady decline in her overall cognition over the past year but states it has been even more impressive over the past week or so. They have discussed the potential of needing a residential facility but he states that she simply not at that point just yet. states that he typically helps her ambulate. She does have left knee arthritis and does not typically have full range of motion of that knee at baseline. Related Data Home Medications Medication Instructions Recorded Confirmed Zyrtec 10 mg PO DAILY 05/28/15 07/04/21 polyethylene glycol 3350 17 gram 17 gm PO DAILY PRN #224 gm 04/13/18 07/04/21 oral powder packet lisinopril 10 mg tablet 10 mg PO DAILY #90 tab-cap 07/11/20 07/04/21 levothyroxine 50 mcg tablet 50 mcg PO DAILY #60 tab 08/13/20 07/04/21 acetaminophen 325 mg tablet 650 mg PO TID PRN PRN #120 tab 03/06/21 07/04/21 aspirin 81 mg chewable tablet 81 mg PO DAILY #60 tab 03/06/21 07/04/21 Previous Rx's Medication Instructions Recorded lisinopril 10 mg tablet 10 mg PO DAILY #90 tab-cap 07/11/20 levothyroxine 50 mcg tablet 50 mcg PO DAILY #60 tab 08/13/20 acetaminophen 325 mg tablet 650 mg PO TID PRN PRN #120 tab 03/06/21 aspirin 81 mg chewable tablet 81 mg PO DAILY #60 tab 03/06/21 Allergies Allergy/AdvReac Type Severity Reaction Status Date / Time acidic foods AdvReac Mild Uncoded 07/04/21 11:16 General Stated Complaint: [facility]Medical ANNIKA: 2 Review of Systems Narrative: Patient unable to answer questions appropriately. HPI, limited, obtained from Constitutional Constitutional: Denies fever(s) and Reports weakness Cardiovascular Cardiovascular: Denies dyspnea Respiratory Respiratory: Denies cough and Denies dyspnea Gastrointestinal Gastrointestinal: Denies vomiting Integumentary/Breasts Skin/Breast: Denies rash Neurologic Neurologic: Reports weakness PFSH All Active Problems (Updated 07/04/21 @ 14:41 by BIB Kumari) Weakness (Acute) Dementia (Acute) Hypothyroid (Chronic) Bradycardia by electrocardiogram (Chronic) Tubular adenoma of colon (Acute) Essential hypertension (Acute 05/31/13) Disorder of vitamin B12 (Acute) ANEMIA Bruit (Acute) base of right neck Medical History Depressive disorder (01/03/13) Displaced fracture of left femoral neck Hypertension Myocardial infarction (05/26/95) Takusubu Syndrome Perforation of tympanic membrane right; chronic Surgical History Appendectomy Cholecystectomy Extraction of cataract B/L Hysterectomy, Laproscopic WITH BSO Ligation of fallopian tube Status post phlebectomy Family History Mother , 53 Personal history of malignant neoplasm Sister , 75 Cancer Diabetes Brother No problems noted. Son , 33 Alcohol abuse Depression Son No problems noted. Daughter No problems noted. Daughter , 34 Diabetes Social History Smoking/Tobacco Use Status: Former Tobacco Use tobacco type: cigarettes Quit Date: 06/27/89 Second Hand Exposure: Yes Smoking risk assessment performed?: Yes Alcohol Intake: former Drug use: Never Substance use type: does not use Caregiver/Support person: Yes Household members: spouse Housing: house Communication Needs: None Do you need help understanding health information?: Often Pets and animals: No Sexually active: No Do you think of yourself as: straight/heterosexual Current gender identity: female What is your relationship status?: How often do you talk on the phone with friends or family?: once per week How often do you get together with friends or relatives?: once per week How often do you attend oriental orthodox or anglican services?: decline to answer Do you belong to any clubs or organized social groups?: no Panel score (0-1 are the most socially isolated patients): 1 What type of physical activity do you participate in: none Yenifer/Hindu: Pentecostal Special yenifer needs: No Seatbelt use: always Helmet use: No Drive intox or ride w/intox stage driver: No Do you feel safe at home: Yes Do you feel safe in your relationship?: Yes Exam Const General: cooperative, healthy appearing, comfortable and no acute distress Orientation: alert, awake and oriented to person Other: Patient appears pleasantly confused, reports this is baseline. [facility] Head: normal to inspection, normocephalic and atraumatic General nose exam: external nose normal Face and sinus: normal facial exam Mouth: moist mucous membranes Eyes General: appearance normal, both eyes and all related structures Alignment and Position: alignment normal Periorbital: periorbital findings normal Eyelids: eyelids normal Conjunctivae: conjunctivae normal Sclera: sclerae normal Cornea: corneas normal Pupils: PERRL EOM: EOM intact bilaterally Direct ophthalmoscopy: normal light reflex Neck Neck: normal visual inspection, full ROM, trachea midline and supple Resp Effort & Inspection: normal respiratory effort and able to speak in complete sentences Auscultation: clear to auscultation bilaterally Cardio Rate: regular rate Rhythm: regular rhythm GI Palpation: soft and nontender Back/Spine/Pelvis Back: No back tenderness Skin General skin exam: no rashes or lesions noted Neuro General: patient alert, patient awake, oriented Patient Orientation: Person, moves all extremities and no focal motor deficits Cranial Nerves: CN's II-XI intact bilaterally Motor: muscle tone normal throughout Sensory Exam: no sensory deficits noted Extrem General: normal to inspection and capillary refill normal Other: Patient able to lift her left leg against gravity but difficulty with flexing her knee, reports this is baseline Psych Appearance: grossly normal Mental Status: mental status grossly normal Course Vital Signs Vital signs: Vital Signs Temperature 36.7 C 07/04/21 11:06 Pulse 70 07/04/21 11:06 Respiratory Rate 20 07/04/21 11:06 Blood Pressure 171/55 H 07/04/21 11:06 Pulse Oximetry 94 07/04/21 11:06 Temperature 36.7 C 07/04/21 11:06 Temperature Source Temporal Artery Scan 07/04/21 11:06 Pulse 68 07/04/21 11:31 Pulse 76 07/04/21 11:40 Respiratory Rate 21 07/04/21 11:40 Respiratory Effort Non-Labored 07/04/21 11:30 Respiratory Depth Normal 07/04/21 11:30 Respiratory Pattern Normal 07/04/21 11:30 Blood Pressure 157/61 H 07/04/21 11:31 Blood Pressure Mean 85 07/04/21 11:31 Blood Pressure Position Supine 07/04/21 11:06 Pulse Oximetry 98 07/04/21 11:31 Oxygen Delivery Method Room Air 07/04/21 11:06 Oxygen Flow Rate 0 07/04/21 11:06 Lab/Test Results Lab/Test Results: Laboratory Tests Range/Units 07/04/21 07/04/21 11:14 11:14 WBC (4.4-10.8) 10^3/uL 9.94 RBC (3.93-5.22) 10^6/uL 4.59 Hgb (11.2-15.7) g/dL 13.8 Hct (36.0-46.0) % 42.6 MCV (80-95) fL 92.8 MCH (27.0-33.0) pg 30.1 MCHC (32.0-36.0) % 32.4 RDW (11.7-14.6) % 13.2 Plt Count (130-400) 10^3/uL 301 MPV (8.0-11.0) fL 11.3 H Immature Gran % 0.4 Neutrophils % 85.6 Lymphocytes % 7.7 Monocytes % 6.1 Eosinophils % 0.0 Basophils % 0.2 Nucleated RBC % % 0 Absolute Neutrophils (1.2-6.7) 10^3/uL 8.50 H Absolute Lymphocytes (1.2-3.4) 10^3/uL 0.77 L Absolute Monocytes (0.1-0.8) 10^3/uL 0.61 Absolute Eosinophils (0.0-0.7) 10^3/uL 0.00 Absolute Basophils (0.0-0.2) 10^3/uL 0.02 Sodium (136-145) mmol/L 139 Potassium (3.5-5.1) mmol/L 4.1 Chloride (98-107) mmol/L 104 Carbon Dioxide (21.0-32.0) mmol/L 28.9 Anion Gap (3-11) mmol/L 6.1 BUN (7-18) mg/dL 20 H Creatinine (0.55-1.02) mg/dL 1.3 H Estimated GFR/1.73 m2 (mL/min/1.73m2) 39.31 Glucose (74-106) mg/dL 101 Calcium (8.5-10.1) mg/dL 9.8 Magnesium (1.8-2.4) mg/dL 1.9 Total Bilirubin (0.2-1.0) mg/dL 0.8 AST (15-37) U/L 19 ALT (14-59) U/L 19 Alkaline Phosphatase (46-116) U/L 132 H Troponin I (<or=60) ng/L < 50 Total Protein (6.4-8.2) g/dL 7.8 Albumin (3.4-5.0) g/dL 3.7 TSH (0.36-3.74) uIU/mL 4.86 H
[2021-07-04 12:11] LABS: Bilirubin Negative (Negative); Blood Negative (Negative); Clarity Clear (Clear); Glucose Negative (Negative); Ketones Negative (Negative); Leukocyte Esterase Negative (Negative); Nitrite Negative (Negative); Specific Gravity 1.025 (1.005-1.025)
[2021-07-04 12:15] LABS: FREE T4 0.86 ng/dL (0.76-1.46)
--- NOTE | 2021-07-04 12:40 | DI.VRAD_ITS ---
PROCEDURE INFORMATION: Exam: CT Head Without Contrast Exam date and time: 07/04/2021 11:41 AM Age: 80 years old Clinical indication: Other: Weakness TECHNIQUE: Imaging protocol: Computed tomography of the head without contrast. Radiation optimization: All CT scans at this facility use at least one of these dose optimization techniques: automated exposure control; mA and/or kV adjustment per patient size (includes targeted exams where dose is matched to clinical indication); or iterative reconstruction. COMPARISON: CT HEAD CERVICAL SPINE WO 10/27/2019 3:06 PM FINDINGS: Brain: There is moderate diffuse heterogeneity of the white matter attenuation, consistent with chronic white matter ischemic changes. Moderate cerebral atrophy. No acute intracranial hemorrhage.. There are multiple small hypodensities in the basal ganglia, consistent with remote lacunar infarctions. Cerebral ventricles: No ventriculomegaly. Paranasal sinuses: Visualized sinuses are unremarkable. No fluid levels. Mastoid air cells: Visualized mastoid air cells are well aerated. Bones/joints: Stable lucency in the left occipital region No acute fracture. Soft tissues: Unremarkable. IMPRESSION: No acute intracranial hemorrhage.. Dictated and Authenticated by: Yoan Tellez MD. Ordering:LDAI Hernandez MD
--- NOTE | 2021-07-04 12:41 | DI.VRAD_ITS ---
PROCEDURE INFORMATION: Exam: XR Chest Exam date and time: 07/04/2021 11:18 AM Age: 80 years old Clinical indication: Other: Weakness TECHNIQUE: Imaging protocol: XR of the chest. Views: 2 views. COMPARISON: XR CHEST 1V IN DI DEPT 10/27/2019 3:20 PM FINDINGS: Lungs: Mild opacity in the left base may represent atelectasis or pneumonia.. Pleural spaces: Unremarkable. No pleural effusion. No pneumothorax. Heart/Mediastinum: Unremarkable. No cardiomegaly. Bones/joints: Unremarkable. IMPRESSION: Mild opacity in the left base may represent atelectasis or pneumonia.. Dictated and Authenticated by: Yoan Tellez MD. Ordering:LADI Hernandez MD
[2021-07-04 13:59] LABS: Troponin I < 50 ng/L (<or=60)
--- NOTE | 2021-07-04 14:46 | NUR.NOTE ---
Referral given to Care Management for additional resources at home by Home Health. Such as PT, etc. Face to Face signed, Gayle Hope Nursing Note:
== END 2021-07-04 15:22 | disposition home or self-care (01) ==
PROVIDERS: Emergency Provider Physician Assistant; PCP Nurse Practitioner
DX: R53.1 Weakness (principal); R91.8 Other nonspecific abnormal finding of lung field; F03.90 Unspecified dementia, unspecified severity, without behavioral disturbance, psychotic disturbance, mood disturbance, and anxiety
CPT/HCPCS: 36415; 80053; 93005; 99285; 70450; 71046; 81003; 83735; 84439; 84443; 84484; 85025; 93010; 99284

== ENCOUNTER 2021-09-20 19:55 | Emergency (ER) | payer MEDICARE, OTHER, SELFPAY ==
[2021-09-20 20:10] VITALS: BP 184/63; PULSE 56; RESP 18; O2SAT 100
--- NOTE | 2021-09-20 20:15 | DI.RAD_ITS ---
Exam(s) XR WRIST LT COMPLETE EXAM: XR WRIST LT COMPLETE CLINICAL HISTORY: pain s/p fall. TECHNIQUE: 2D digital imaging was performed. Three views. COMPARISON: No exams were available for comparison FINDINGS: Bones appear osteopenic. There is a comminuted intra-articular fracture of the distal radius. There is some impaction as well as dorsal angulation. There is marked surrounding soft tissue swelling. The ulnar styloid is fractured and slightly displaced. The carpal region is unremarkable with the e xception of degenerative changes. IMPRESSION: Comminuted, impacted intra-articular fracture of the distal radius. Ulnar styloid fracture. DATA REPOSITORY: RADIATION DOSE DELIVERED:
--- NOTE | 2021-09-20 20:21 | ED.GENADUL_ITS ---
Discharge Plan Disposition Patient Disposition: HOME Condition: Stable Discharge Details Clinical Impression: Fracture of left wrist Primary Care Provider: Kerri Villanueva ED Provider: Will Swartz Home Meds and New Rx's Prescriptions: Continued acetaminophen [Tylenol] 325 mg tablet 650 mg PO TID PRN PRN (Reason: pain) Qty: 120 0RF aspirin 81 mg tablet,chewable 81 mg PO DAILY Qty: 60 0RF multivitamin Tablet 1 tab PO DAILY 0RF Zyrtec 10 MG capsule 10 mg PO DAILY 0RF polyethylene glycol 3350 [Miralax] 17 gram powder in packet 17 gm PO DAILY PRNQty: 224 3RF Label Comments: has not started yet lisinopril 10 mg tablet 10 mg PO DAILY Qty: 90 3RF levothyroxine 50 mcg tablet 50 mcg PO DAILY Qty: 60 0RF morphine concentrate 100 mg/5 mL (20 mg/mL) solution See Rx Instructions PO Q1H PRN MDD 240 mg PRN (Reason: pain) Qty: 30 0RF Rx Instructions: 0.25-1.0 ml PO every 1 hour, as needed; HOSPICE patient lorazepam 2 mg/mL concentrate 0.5 mg PO Q4H PRN (Reason: anxiety, agitation, nausea, dyspnea) Qty: 30 0RF Rx Instructions: hospice patient Discharge Instructions Additional Instructions: Wear the splint for comfort if you decide to follow up with orthopedics call their office to arrange an appointment Referrals: Jovon Murray MD [ [facility] STAFF PHYSICIAN] - Medical Decision Making 81 yo female with 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 states the patient got out of her recliner tonight and walked to the cough, tripped and landed on her left arm, no loc and did not hit her head. He noticed a deformity to the left wrist and brought her herre. She has no head pain, neck tenderness, chest or abdomen tenderness. No c/t/L spine tenderness. No signs of trauma to the head, PERRL. She has no tenderness in the left shoulder, humerus, elbow or proximal/mid forearm. Has swellin to the left wrist. No tenderness of the hand or fingers, intact cap refill. Unable to range the wrist due to pain. Suspect fracture/dislocation, discussed with and will proceed with xray to confirm. pt stable and xray confirms fracture, with mild apex volar angulation, did not feel attempting reduction would result in better alignment so placed in universal splint. Discussed with and he is going to discuss with her hospice providers to determine if she should f/u with ortho or not. REturn precautions given Differential Diagnosis Differential Diagnosis: fracture, dislocation Medical Records Medical records reviewed: Yes I reviewed the patient's medical records. Imaging Data Radiologic Study: Attestation: I personally reviewed and interpreted this imaging study as follows: Imaging: X-Ray My impression: fracture Radiologist's impression: IMPRESSION: 1. Acute intra-articular distal radial fracture with mild impaction and mild apex volar angulation. 2. Acute mildly distracted ulnar styloid fracture. There is additionally probably an acute nondisplaced fracture of the distal ulnar metaphysis. ECG Data Attestation: I personally reviewed and interpreted this ECG (s) as follows: HPI General Mode of arrival: wheelchair . Date/Time Provider Initiated Documentation: 09/20/21 20:00 . Limitations to Documentation: other (dementia) . Information obtained by: family . History of Present Illness 81 year old F presents to the emergency department with the chief complaint of left wrist pain, described as moderate, Quality is described as aching, and is localized to the left and upper extremity. Patient reports no radiation. Patient started experiencing this hour(s) (1) and it has been constant. improves with Rest improves symptom(s), Movement worsens symptoms . Patient notes no other symptoms.. Patient did receive the following treatments prior to arrival, none Related Data Home Medications Medication Instructions Recorded Confirmed cetirizine 10 mg capsule (Zyrtec) 10 mg PO DAILY 05/28/15 08/13/21 polyethylene glycol 3350 17 gram 17 gm PO DAILY PRN #224 gm 04/13/18 09/20/21 oral powder packet (Miralax) lisinopril 10 mg tablet 10 mg PO DAILY #90 tab-cap 07/11/20 09/20/21 levothyroxine 50 mcg tablet 50 mcg PO DAILY #60 tab 08/13/20 09/20/21 acetaminophen 325 mg tablet 650 mg PO TID PRN PRN #120 tab 03/06/21 08/13/21 (Tylenol) aspirin 81 mg chewable tablet 81 mg PO DAILY #60 tab 03/06/21 09/20/21 multivitamin 1 tab PO DAILY 07/24/21 09/20/21 lorazepam 2 mg/mL oral concentrate 0.5 mg (0.25 mL) PO Q4H PRN #30 ml 08/13/21 09/20/21 morphine concentrate 100 mg/5 mL See Rx Instructions PO Q1H PRN PRN 08/13/21 09/20/21 (20 mg/mL) oral solution #30 ml MDD 240 mg Previous Rx's Medication Instructions Recorded lisinopril 10 mg tablet 10 mg PO DAILY #90 tab-cap 07/11/20 levothyroxine 50 mcg tablet 50 mcg PO DAILY #60 tab 08/13/20 acetaminophen 325 mg tablet 650 mg PO TID PRN PRN #120 tab 03/06/21 (Tylenol) aspirin 81 mg chewable tablet 81 mg PO DAILY #60 tab 03/06/21 lorazepam 2 mg/mL oral concentrate 0.5 mg (0.25 mL) PO Q4H PRN #30 ml 08/13/21 morphine concentrate 100 mg/5 mL See Rx Instructions PO Q1H PRN PRN 08/13/21 (20 mg/mL) oral solution #30 ml MDD 240 mg Allergies Allergy/AdvReac Type Severity Reaction Status Date / Time acidic foods AdvReac Mild Uncoded 09/20/21 20:13 General Stated Complaint: Orthopedic ANNIKA: 4 Review of Systems All systems reviewed & are unremarkable except as noted in HPI and below Constitutional Constitutional: Denies chills, Denies fever(s) and Denies weakness Cardiovascular Cardiovascular: Denies chest pain and Denies dyspnea Respiratory Respiratory: Denies cough and Denies dyspnea Gastrointestinal Gastrointestinal: Denies abdominal pain, Denies nausea and Denies vomiting Integumentary/Breasts Skin/Breast: Denies rash Neurologic Neurologic: Denies weakness PFSH All Active Problems (Updated 09/20/21 @ 21:37 by Will Swartz MD) Fracture of left wrist (Acute) Hospice care patient (Acute) Dementia (Acute) Hypothyroid (Chronic) Bradycardia by electrocardiogram (Chronic) Tubular adenoma of colon (Acute) Essential hypertension (Acute 05/31/13) Disorder of vitamin B12 (Acute) ANEMIA Bruit (Acute) base of right neck Medical History Depressive disorder (01/03/13) Displaced fracture of left femoral neck Hypertension Myocardial infarction (05/26/95) Takusubu Syndrome Perforation of tympanic membrane right; chronic Surgical History Appendectomy Cholecystectomy Extraction of cataract B/L Hysterectomy, Laproscopic WITH BSO Ligation of fallopian tube Status post phlebectomy Family History Mother , 53 Personal history of malignant neoplasm Sister , 75 Cancer Diabetes Brother No problems noted. Son , 33 Alcohol abuse Depression Son No problems noted. Daughter No problems noted. Daughter , 34 Diabetes Social History Smoking/Tobacco Use Status: Former Tobacco Use tobacco type: cigarettes Quit Date: 06/27/89 Second Hand Exposure: Yes Smoking risk assessment performed?: Yes Alcohol Intake: former Drug use: Never Substance use type: does not use Caregiver/Support person: Yes Household members: spouse Housing: house Communication Needs: None Do you need help understanding health information?: Often Pets and animals: No Sexually active: No Do you think of yourself as: straight/heterosexual Current gender identity: female What is your relationship status?: How often do you talk on the phone with friends or family?: once per week How often do you get together with friends or relatives?: once per week How often do you attend restoration or quaker services?: decline to answer Do you belong to any clubs or organized social groups?: no Panel score (0-1 are the most socially isolated patients): 1 What type of physical activity do you participate in: none Yenifer/Religious: Rastafarian Special yenifer needs: No Seatbelt use: always Helmet use: No Drive intox or ride w/intox bicycle taxi driver: No Do you feel safe at home: Yes Do you feel safe in your relationship?: Yes Exam Const General: no acute distress Orientation: alert HENMT Head: normal to inspection Ears: external ears normal General nose exam: external nose normal Mouth: moist mucous membranes Eyes General: appearance normal, both eyes and all related structures Neck Neck: normal visual inspection Resp Effort & Inspection: normal respiratory effort and able to speak in complete sentences Cardio Rate: regular rate GI Palpation: soft and nontender Skin General skin exam: no rashes or lesions noted Neuro General: patient alert Extrem General: capillary refill normal Psych Mental Status: mental status grossly normal Course Vital Signs Vital signs: Vital Signs Pulse 56 L 09/20/21 20:10 Respiratory Rate 18 09/20/21 20:10 Blood Pressure 184/63 H 09/20/21 20:10 Pulse Oximetry 100 09/20/21 20:10 Temperature Source Skin 09/20/21 20:10 Pulse 56 L 09/20/21 20:10 Respiratory Rate 18 09/20/21 20:10 Respiratory Effort Non-Labored 09/20/21 20:16 Blood Pressure 184/63 H 09/20/21 20:10 Pulse Oximetry 100 09/20/21 20:10 Oxygen Delivery Method Room Air 09/20/21 20:10 Oxygen Flow Rate 0 09/20/21 20:10 Pain Level 8 09/20/21 20:10
[2021-09-20] MEDS: Acetaminophen 325 MG TAB 650 MG PO (20:31)
--- NOTE | 2021-09-20 21:33 | DI.VRAD_ITS ---
PROCEDURE INFORMATION: Exam: XR Left Wrist Exam date and time: 09/20/2021 20:58 Age: 81 years old Clinical indication: Injury or trauma; Blunt trauma (contusions or hematomas); Wrist; Left; Injury date: 09/20/21; Injury details: Pain after fall TECHNIQUE: Imaging protocol: XR Left wrist. Views: 3 or more views. COMPARISON: No relevant prior studies available. FINDINGS: Bones/joints: The bones are demineralized. Acute intra-articular distal radial fracture with mild impaction and mild apex volar angulation. Acute mildly distracted ulnar styloid fracture. There is additionally probably an acute nondisplaced fracture of the distal ulnar metaphysis. Chronic degenerative changes in the wrist. No dislocation. Soft tissues: Generalized soft tissue swelling. IMPRESSION: 1. Acute intra-articular distal radial fracture with mild impaction and mild apex volar angulation. 2. Acute mildly distracted ulnar styloid fracture. There is additionally probably an acute nondisplaced fracture of the distal ulnar metaphysis. Dictated and Authenticated by: Missy Enriquez MD. Ordering:ZEINAB Solis MD
== END 2021-09-20 22:00 | disposition home or self-care (01) ==
PROVIDERS: Emergency Provider Emergency Medicine; PCP Nurse Practitioner
DX: S52.592A Other fractures of lower end of left radius, initial encounter for closed fracture (principal); S52.612A Displaced fracture of left ulna styloid process, initial encounter for closed fracture; W01.0XXA Fall on same level from slipping, tripping and stumbling without subsequent striking against object, initial encounter
CPT/HCPCS: 29125; 99283; 73110